=== PATIENT | male | born 1935 | race Caucasian/White ===

== ENCOUNTER 2016-11-22 13:55 | Emergency (ER) | payer MEDICARE, MEDICAID ==
--- NOTE | 2016-11-22 14:43 | ED ---
GI/ HPI - HPI Summary HPI Summary: Pt sent from [facility] w/ leaking supra pubic catheter. This was [place] [address] Garces under fluoroscopy and has been working well until recently ( no further information provided by [facility]). Pt's urologist is Dr. Mayorga. Pt is afebrile and does not offer any complaints today. - History of Current Complaint Chief Complaint: EDUrogenitalProblems Time Seen by Provider: 11/22/16 14:09 Stated Complaint: NEEDS CATH CHANGE Hx Obtained From: Patient, Family/Proofer Black [employer] White - Report from [facility] Pain Intensity: 0 - Additional Pertinent History Primary Care Physician: [id number] - Allergy/Home Medications Allergies/Adverse Reactions: Allergies Allergy/AdvReac Type Severity Reaction Status Date / Time Penicillins Allergy Unknown Verified 10/27/16 11:07 Reaction Details PMH/Surg Hx/FS Hx/Imm Hx Previously Healthy: Yes Endocrine/Hematology History: Reports: Hx Anticoagulant Therapy Denies: Hx Diabetes Cardiovascular History: Reports: Hx Atrial Fibrillation, Hx Coronary Artery Disease, Hx Deep Vein Thrombosis, Hx Hypercholesterolemia, Hx Hypertension Denies: Hx Pacemaker/ICD History: Reports: Hx Renal Disease - SUPRAPUBIC CATHETER, Other Problems/ Disorders - PROSTATE CANCER Musculoskeletal History: Reports: Other Musculoskeletal History - MORBID OBESITY Sensory History: Reports: Hx Cataracts, Hx Contacts or Glasses, Hx Glaucoma Denies: Hx Hearing Aid Opthamlomology History: Reports: Hx Cataracts, Hx Contacts or Glasses, Hx Glaucoma Neurological History: Reports: Hx Dementia, Hx Seizures, Other Neuro Impairments /Disorders - ISSUES WITH SHORT TERM MEMORY Psychiatric History: Reports: Hx Panic Disorder - NERVOUS - Cancer History Cancer Type, Location and Year: PROSTATE CANCER - Surgical History Surgery Procedure, Year, and Place: CAD WITH STENTS. CATARACTS. BRAIN SURGERY IN 1988 WITH METAL PLACEMENT (PT STATES WAS IN ACCIDENT HAD ALOT DONE DOES NOT REMEMBER) Hx Anesthesia Reactions: No Infectious Disease History: Reports: Hx of Known/Suspected MRSA Denies: Traveled Outside the [place] in Last 30 Days - Family History Known Family History: Positive: Unknown - The patient is a poor historian. Family History: R & n/C - Social History Occupation: Disabled Lives: [facility] Alcohol Use: None Hx Substance Use: No Substance Use Type: Reports: None Hx Tobacco Use: No Smoking Status (MU): Never Smoked Tobacco Review of Systems - ROS Summary Review of Systems Summary: Level 5 caveat - dementia Negative: Fever, Chills Negative: Chest Pain Negative: Abdominal Pain, Vomiting, Nausea Positive: see HPI Psychological: Normal All Other Systems Reviewed And Are Negative: Yes Physical Exam - Summary Physical Exam Summary: Level 5 caveat - dementia Triage Information Reviewed: Yes Vital Signs On Initial Exam: Initial Vitals Temp Pulse Resp BP Pulse Ox 98.3 F 68 20 119/75 98 11/22/16 14:02 11/22/16 14:02 11/22/16 14:02 11/22/16 14:02 11/22/16 14:02 Vital Signs Reviewed: Yes Appearance: Positive: Well-Appearing, No Pain Distress, Well-Nourished Skin: Positive: Warm - pannus fold where supra pubic catheter is placed is moist w/ what smells like urine - clear liquid - maculopapular confluence of what appears to be mild skin irritation around site where urine is touching skin ; no ivana breakdown observed here and pt denies tenderness w/ palpation of skin as well as ab in general Eyes: Positive: Normal, EOMI ENT: Positive: Hearing grossly normal Respiratory/Lung Sounds: Positive: Breath Sounds Present Cardiovascular: Positive: Normal, RRR - distant heart sounds Abdomen Description: Positive: Nontender, Soft Bowel Sounds: Positive: Present Neurological: Positive: Other - poor historian Psychiatric: Positive: Normal - [place] Coma Scale Coma Scale Total: 15 Diagnostics - Vital Signs Vital Signs Temp Pulse Resp BP Pulse Ox 11/22/16 14:02 98.3 F 68 20 119/75 98 - Laboratory Lab Statement: Any lab studies that have been ordered have been reviewed, and results considered in the medical decision making process. GIGU Course/Dx - Course Course Of Treatment: Pt's proximal catheter tubing flushes well with saline and easily provides urine back into a 20cc syringe - urine is clear. When reattched to distal tubing, urine starts to flow but then stops as it appears to be partially occluded by a plug in the distal tubing. Some urine is flowing into the urine outpt bag however stoma/proximal site is leaking again. Spoke w/ Emily, Photo Machine Operator, who after a period of time was able to find appropriate distal tubing for a trial which was successful in allowing urine to flow into output bag. After drying the site and waiting to see if urine would still leak from site, it was successful as the stoma site was dry after an hour, urine was flowing easily into the output bag and so pt was d/c'd back to [facility]. D/ c paperwork discussed that if catheter site starts leaking again, return to a hospital with IR as this will need to be replaced under fluoroscopy. Dr. Barrientos was contacted who deferred to Dr. Garces (IR). Dr. Garces is without resources today to address this pt's issue under fluoroscopy. ...... - Diagnoses Provider Diagnoses: Ramires catheter problem - Physician Notifications Discussed Care Of Patient With: Dr. Eckert. Dr. Garces. Dr. Barrientos Discharge - Discharge Plan Condition: Stable Disposition: HOME Patient Education Materials: Ramires Catheter Placement and Care (ED) Referrals: Solomon Aparicio MD [Primary Care Provider] - Additional Instructions: Your Ramires catheter was leaking from your stoma site today. After an equipment check, it appeared that the distal tubing was clogged with debris. This tubing was removed and new tubing placed. At this time, the urine flowed freely from the bladder without leakage. Please monitor patient for leakage over the weekend. If this occurs, he needs to be sent to a facility with an Interventional Radiologist who can replace his entire catheter under fluoroscopy as his tube size may need to be increased in diameter. *If patient develop fever, chills, vomiting, abdominal pain, return to ED
[2016-11-22 19:39] VITALS: BP 124/82
== END 2016-11-22 19:37 | disposition home or self-care (01) ==
LOC: ED 13:55
DX: Z46.6 Encounter for fitting and adjustment of urinary device (principal)
CPT/HCPCS: 99283

== ENCOUNTER 2016-12-31 20:07 | Emergency (ER) | payer MEDICARE, MEDICAID ==
[2016-12-31 20:56] VITALS: BP 130/80
--- NOTE | 2016-12-31 20:59 | ED ---
Pebbles Dash Alok, scribed for Shahriar Lockhart on 12/31/16 at 2029 . GI/ HPI - HPI Summary HPI Summary: 81 y/o male presents to the ED from [facility] in need of a suprapubic catheter replacement. Pt states that his catheter "fell out" at his long-term. Pt denies pain. - History of Current Complaint Chief Complaint: EDUrogenitalProblems Time Seen by Provider: 12/31/16 20:14 Stated Complaint: NEEDS CATHETER CHANGE Hx Obtained From: Patient Onset/Duration: Started Hours Ago Timing: Constant Severity: Moderate Current Severity: Moderate Pain Intensity: 0 - Additional Pertinent History Primary Care Physician: [id number] - Allergy/Home Medications Allergies/Adverse Reactions: Allergies Allergy/AdvReac Type Severity Reaction Status Date / Time Penicillins Allergy Unknown Verified 10/27/16 11:07 Reaction Details PMH/Surg Hx/FS Hx/Imm Hx Endocrine/Hematology History: Reports: Hx Anticoagulant Therapy Denies: Hx Diabetes Cardiovascular History: Reports: Hx Atrial Fibrillation, Hx Coronary Artery Disease, Hx Deep Vein Thrombosis, Hx Hypercholesterolemia, Hx Hypertension Denies: Hx Pacemaker/ICD History: Reports: Hx Renal Disease - SUPRAPUBIC CATHETER, Other Problems/ Disorders - PROSTATE CANCER Musculoskeletal History: Reports: Other Musculoskeletal History - MORBID OBESITY Sensory History: Reports: Hx Cataracts, Hx Contacts or Glasses, Hx Glaucoma Denies: Hx Hearing Aid Opthamlomology History: Reports: Hx Cataracts, Hx Contacts or Glasses, Hx Glaucoma Neurological History: Reports: Hx Dementia, Hx Seizures, Other Neuro Impairments /Disorders - ISSUES WITH SHORT TERM MEMORY Psychiatric History: Reports: Hx Panic Disorder - NERVOUS - Cancer History Cancer Type, Location and Year: PROSTATE CANCER - Surgical History Surgery Procedure, Year, and Place: CAD WITH STENTS. CATARACTS. BRAIN SURGERY IN 1988 WITH METAL PLACEMENT (PT STATES WAS IN ACCIDENT HAD ALOT DONE DOES NOT REMEMBER) Hx Anesthesia Reactions: No Infectious Disease History: No Infectious Disease History: Reports: Hx of Known/Suspected MRSA Denies: Traveled Outside the US in Last 30 Days - Family History Known Family History: Positive: Unknown - The patient is a poor historian. Family History: R & n/C - Social History Occupation: Retired Lives: [facility] Alcohol Use: None Hx Substance Use: No Substance Use Type: Reports: None Hx Tobacco Use: No Smoking Status (MU): Never Smoked Tobacco Review of Systems Negative: Fever Positive: other - Needs Catheter replacement All Other Systems Reviewed And Are Negative: Yes Physical Exam Triage Information Reviewed: Yes Vital Signs On Initial Exam: Initial Vitals Temp Pulse Resp BP Pulse Ox 99.1 F 82 20 160/81 100 12/31/16 20:12 12/31/16 20:12 12/31/16 20:12 12/31/16 20:12 12/31/16 20:12 Vital Signs Reviewed: Yes Appearance: Positive: Well-Appearing, No Pain Distress Skin: Positive: Warm, Skin Color Reflects Adequate Perfusion, Dry Head/Face: Positive: Normal Head/Face Inspection Eyes: Positive: EOMI, RAFY ENT: Positive: Normal ENT inspection Neck: Positive: Supple, Nontender Respiratory/Lung Sounds: Positive: Clear to Auscultation, Breath Sounds Present Cardiovascular: Positive: RRR, Pulses are Symmetrical in both Upper and Lower Extremities Abdomen Description: Positive: Nontender, Soft, Other: - Suprapubic catheter was dislodged. Ostia was present. Bowel Sounds: Positive: Present Musculoskeletal: Positive: Normal, Strength/ROM Intact Neurological: Positive: Other - Alert and confused Procedures - Procedure Summary Procedure Summary: Replaced with 16 Foli catheter. Good drainage of urine. Pt tolerated well. Diagnostics - Vital Signs Vital Signs Temp Pulse Resp BP Pulse Ox 12/31/16 20:12 99.1 F 82 20 160/81 100 - Laboratory Lab Statement: Any lab studies that have been ordered have been reviewed, and results considered in the medical decision making process. GIGU Course/Dx - Course Course Of Treatment: Suprapubic catheter was dislodged. Ostia was present. Replaced with 16 Foli catheter. Good drainage of urine. Pt tolerated well. Will discharge with recommendation to FU with PCP in 3 days. - Diagnoses Provider Diagnoses: replacement of suprapubic catheter Discharge - Discharge Plan Condition: Stable Disposition: HOME Patient Education Materials: Ramires Catheter Placement and Care (ED) Referrals: Solomon Aparicio MD [Primary Care Provider] - 3 Days The documentation as recorded by the Pebbles khan Alok accurately reflects the service I personally performed and the decisions made by Richy sow Emmanuel.
== END 2016-12-31 21:50 ==
LOC: ED 20:07
DX: Z46.6 Encounter for fitting and adjustment of urinary device (principal)
CPT/HCPCS: 99282

== ENCOUNTER 2017-04-23 21:05 | Emergency (ER) | payer MEDICARE, MEDICAID ==
--- NOTE | 2017-04-23 22:57 | ED ---
Complex/Multi-Sys Presentation - HPI Summary HPI Summary: 81 [facility] with complaint of needed his suprapubic catheter replaced. Patient's nursing staff and Dr Forbes stated he needed to have it done in ER as it was before. States it is leaking and they are having difficulties with irrigating it. Patient has dementia. Has no complaints at this time. No fever/chills. Staff at [facility] denies erythema or problems with site and no discharge. - History Of Current Complaint Chief Complaint: EDGeneral Time Seen by Provider: 04/23/17 22:08 Hx Obtained From: Patient Onset/Duration: Sudden Onset Severity Currently: None Associated Signs And Symptoms: Positive: Other - catheter replacement - Allergies/Home Medications Allergies/Adverse Reactions: Allergies Allergy/AdvReac Type Severity Reaction Status Date / Time Penicillins Allergy Rash Verified 03/25/17 09:55 PMH/Surg Hx/FS Hx/Imm Hx Endocrine/Hematology History: Reports: Hx Anticoagulant Therapy Denies: Hx Diabetes Cardiovascular History: Reports: Hx Atrial Fibrillation, Hx Coronary Artery Disease, Hx Deep Vein Thrombosis, Hx Hypercholesterolemia, Hx Hypertension Denies: Hx Pacemaker/ICD History: Reports: Hx Renal Disease - SUPRAPUBIC CATHETER, Other Problems/ Disorders - PROSTATE CANCER Musculoskeletal History: Reports: Other Musculoskeletal History - MORBID OBESITY Sensory History: Reports: Hx Cataracts, Hx Contacts or Glasses, Hx Glaucoma Denies: Hx Hearing Aid Opthamlomology History: Reports: Hx Cataracts, Hx Contacts or Glasses, Hx Glaucoma Neurological History: Reports: Hx Dementia, Hx Seizures, Other Neuro Impairments /Disorders - ISSUES WITH SHORT TERM MEMORY Psychiatric History: Reports: Hx Panic Disorder - NERVOUS - Cancer History Cancer Type, Location and Year: PROSTATE CANCER - Surgical History Surgery Procedure, Year, and Place: CAD WITH STENTS. CATARACTS. BRAIN SURGERY IN 1988 WITH METAL PLACEMENT (PT STATES WAS IN ACCIDENT HAD ALOT DONE DOES NOT REMEMBER) Hx Anesthesia Reactions: No - Immunization History Immunizations Up to Date: Yes Infectious Disease History: No Infectious Disease History: Reports: Hx of Known/Suspected MRSA Denies: Traveled Outside the US in Last 30 Days - Family History Known Family History: Positive: None, Unknown - The patient is a poor historian. Family History: R & n/C - Social History Alcohol Use: None Hx Substance Use: No Substance Use Type: Reports: None Hx Tobacco Use: No Smoking Status (MU): Never Smoked Tobacco Review of Systems Constitutional: Negative Cardiovascular: Negative Positive: Shortness Of Breath Positive: other - catheter replacement Musculoskeletal: Negative All Other Systems Reviewed And Are Negative: Yes Physical Exam Triage Information Reviewed: Yes Vital Signs On Initial Exam: Initial Vitals Temp Pulse Resp BP Pulse Ox 98.1 F 84 16 126/66 96 04/23/17 21:15 04/23/17 21:15 04/23/17 21:15 04/23/17 21:15 04/23/17 21:15 Vital Signs Reviewed: Yes Appearance: Positive: Well-Appearing, No Pain Distress, Well-Nourished Skin: Positive: Warm, Skin Color Reflects Adequate Perfusion, Dry. Negative: Cold Head/Face: Positive: Normal Head/Face Inspection Eyes: Positive: Conjunctiva Clear ENT: Positive: Hearing grossly normal Neck: Positive: Supple, Nontender Respiratory/Lung Sounds: Positive: Clear to Auscultation, Breath Sounds Present. Negative: Rales, Rhonchi, Wheezes Cardiovascular: Positive: Normal, RRR, Pulses are Symmetrical in both Upper and Lower Extremities. Negative: Murmur, Rub Abdomen Description: Positive: Nontender, No Organomegaly, Soft, Other: - suprapubic catheter in place, replaced without complication. no concern for infection, no erythema or discharge noted.. Negative: Bruit, CVA Tenderness (R) , CVA Tenderness (L), Distended, Guarding, Peritoneal Signs Bowel Sounds: Positive: Present Musculoskeletal: Positive: Normal, Strength/ROM Intact Neurological: Positive: Normal, Sensory/Motor Intact Psychiatric: Positive: Affect/Mood Appropriate - [place] Coma Scale Coma Scale Total: 15 Diagnostics - Vital Signs Vital Signs Temp Pulse Resp BP Pulse Ox 04/23/17 21:15 98.1 F 84 16 126/66 96 - Laboratory Lab Statement: Any lab studies that have been ordered have been reviewed, and results considered in the medical decision making process. Complex Multi-Symp Course/Dx Course Of Treatment: suprapubic catheter was replaced by Dr Bee without complication. Patient tolerated procedure well. appropriate size and type information recieved from [facility]. no other concerns, normal vitals, afebrile. follow up with [facility] physician and urology. - Diagnoses Differential Diagnoses/HQI/PQRI: Urinary Tract Infection, Other - encouter for replacement of urinary catheter Provider Diagnoses: Encounter for replacement of urinary catheter Discharge - Discharge Plan Condition: Stable Disposition: HOME Patient Education Materials: How to Care for Your Suprapubic Catheter (ED) Referrals: Solomon Aparicio MD [Primary Care Provider] - Additional Instructions: please follow up with urology if any complications with catheter.
[2017-04-24 00:11] VITALS: BP 142/78
== END 2017-04-24 00:50 | disposition home or self-care (01) ==
LOC: ED 21:05
DX: Z46.6 Encounter for fitting and adjustment of urinary device (principal); R06.02 Shortness of breath; Z79.01 Long term (current) use of anticoagulants; Z86.79 Personal history of other diseases of the circulatory system
CPT/HCPCS: 99282

== ENCOUNTER 2017-05-06 08:59 | Emergency (ER) | payer MEDICARE, MEDICAID ==
[2017-05-06 14:37] LABS: Urine Bacteria Absent (Absent); Urine Bilirubin Negative (Negative); Urine Glucose Negative (Negative); Urine Nitrite Positive (Negative)
--- NOTE | 2017-05-06 15:05 | ED ---
Garry Dash Benjamin, scribed for Flo Doherty MD on 05/06/17 at 1038 . GI/ HPI - HPI Summary HPI Summary: 81yo male, per RN note, came in for having constant urges to urinate. Pt is demented. Unable to get full HPI from the pt. When asked the pt, pt denies fever , chills, pain, urges to urinate, or any acute symptoms. When examined, pt has a 16 cameroonian iqbal catheter with suprapubic placement with urine leaking around the iqbal. Bladder scan showed no urine in the bladder. PMHx include HTN, cardiac stent, cataract surgery, short-term memory deficit, CAD, cellulitis, dementia, and seizures. - History of Current Complaint Chief Complaint: EDUrogenitalProblems Stated Complaint: CATH PROB Hx Obtained From: Patient Onset/Duration: Resolved Current Severity: None Pain Intensity: 0 Associated Signs and Symptoms: Positive: Negative. Negative: Fever, Chills, UTI Symptoms Aggravating Factor(s): Nothing Alleviating Factor(s): Nothing - Additional Pertinent History Primary Care Physician: [id number] - Allergy/Home Medications Allergies/Adverse Reactions: Allergies Allergy/AdvReac Type Severity Reaction Status Date / Time Penicillins Allergy Rash Verified 05/06/17 09:42 PMH/Surg Hx/FS Hx/Imm Hx Endocrine/Hematology History: Reports: Hx Anticoagulant Therapy Denies: Hx Diabetes Cardiovascular History: Reports: Hx Atrial Fibrillation, Hx Coronary Artery Disease, Hx Deep Vein Thrombosis, Hx Hypercholesterolemia, Hx Hypertension Denies: Hx Pacemaker/ICD History: Reports: Hx Renal Disease - SUPRAPUBIC CATHETER, Other Problems/ Disorders - PROSTATE CANCER Musculoskeletal History: Reports: Other Musculoskeletal History - MORBID OBESITY Sensory History: Reports: Hx Cataracts, Hx Contacts or Glasses, Hx Glaucoma Denies: Hx Hearing Aid Opthamlomology History: Reports: Hx Cataracts, Hx Contacts or Glasses, Hx Glaucoma Neurological History: Reports: Hx Dementia, Hx Seizures, Other Neuro Impairments /Disorders - ISSUES WITH SHORT TERM MEMORY Psychiatric History: Reports: Hx Panic Disorder - NERVOUS - Cancer History Cancer Type, Location and Year: PROSTATE CANCER - Surgical History Surgery Procedure, Year, and Place: CAD WITH STENTS. CATARACTS. BRAIN SURGERY IN 1988 WITH METAL PLACEMENT (PT STATES WAS IN ACCIDENT HAD ALOT DONE DOES NOT REMEMBER) Hx Anesthesia Reactions: No Infectious Disease History: No Infectious Disease History: Reports: Hx of Known/Suspected MRSA Denies: Traveled Outside the US in Last 30 Days - Family History Known Family History: Positive: Unknown - The patient is a poor historian. Dementia - Social History Occupation: Retired Lives: With Family Alcohol Use: None Hx Substance Use: No Substance Use Type: Reports: None Hx Tobacco Use: No Smoking Status (MU): Never Smoked Tobacco Review of Systems Constitutional: Negative Negative: Fever, Chills Eyes: Negative ENT: Negative Cardiovascular: Negative Negative: Chest Pain Respiratory: Negative Negative: Shortness Of Breath, Cough Gastrointestinal: Negative Positive: no symptoms reported. Negative: burning, dysuria, hematuria, pain Musculoskeletal: Negative Skin: Negative Neurological: Negative Psychological: Normal All Other Systems Reviewed And Are Negative: Yes Physical Exam Triage Information Reviewed: Yes Vital Signs On Initial Exam: Initial Vitals Temp Pulse Resp BP Pulse Ox 98.0 F 67 16 135/75 97 05/06/17 09:00 05/06/17 09:00 05/06/17 09:00 05/06/17 09:00 05/06/17 09:00 Vital Signs Reviewed: Yes Appearance: Positive: Well-Appearing, No Pain Distress, Well-Nourished Skin: Positive: Warm, Skin Color Reflects Adequate Perfusion, Dry Head/Face: Positive: Normal Head/Face Inspection Eyes: Positive: Normal ENT: Positive: Normal ENT inspection Neck: Positive: Supple, Nontender Respiratory/Lung Sounds: Positive: Clear to Auscultation, Breath Sounds Present Cardiovascular: Positive: RRR, Pulses are Symmetrical in both Upper and Lower Extremities Abdomen Description: Positive: Nontender, Soft Bowel Sounds: Positive: Present Male Genital Exam: Positive: other - Pt has a 16 cameroonian iqbal catheter with suprapubic placement with urine leaking around the iqbal. Bladder scan showed no urine in the bladder. Musculoskeletal: Positive: Normal, Strength/ROM Intact Neurological: Positive: Sensory/Motor Intact, Alert, Oriented to Person Place, Time Psychiatric: Positive: Affect/Mood Appropriate - Steven Coma Scale Coma Scale Total: 15 Diagnostics - Vital Signs Vital Signs Temp Pulse Resp BP Pulse Ox 05/06/17 09:30 67 126/74 96 05/06/17 09:06 82 93 05/06/17 09:05 135/75 05/06/17 09:00 98.0 F 67 16 135/75 97 - Laboratory Lab Results: Lab Results 05/06/17 Range/Units 14:00 Urine Color Yellow Urine Appearance Cloudy Urine pH 9.0 (5-9) Ur Specific [place] > 1.060 H (1.010-1.030) Urine Protein 1+(30 mg/dl) H (Negative) Urine Ketones Negative (Negative) Urine Blood Negative (Negative) Urine Nitrate Positive H (Negative) Urine Bilirubin Negative (Negative) Urine Urobilinogen Negative (Negative) Ur Leukocyte Esterase 3+ H (Negative) Urine WBC (Auto) 1+(6-10/hpf) H (Absent) Urine RBC (Auto) 2+(6-10/hpf) H (Absent) Ur Squamous Epith Cells Present H (Absent) Urine Bacteria Absent (Absent) Urine Glucose Negative (Negative) Lab Statement: Any lab studies that have been ordered have been reviewed, and results considered in the medical decision making process. GIGU Course/Dx - Course Course Of Treatment: Reviewed pts medication and allergy lists. Blood pressure noted. Discussed with Dr. Mayorga (Urology) at 1054. Dr. Mayorga says the pt' s catheter has been placed under Dr. Schilling's guidance in the past. Discussed with Dr. Schilling (Interventional Radiology) at 1117. DR SCHILLIGN REPLACED THE IQBAL SUPRAPUBIC CATHETER. NO RX FOR URINE AT THIS TIME THE PATIENT IS ASYMPTOMATIC. NO CRITICAL CARE TIME. - Diagnoses Provider Diagnoses: Encounter for suprapubic catheter care, Suprapubic catheter dysfunction Discharge - Discharge Plan Condition: Stable Disposition: HOME Patient Education Materials: Iqbal Catheter Placement and Care (ED) Referrals: Solomon Aparicio MD [Primary Care Provider] - Additional Instructions: FLUSH THE CATHETER WITH 20 ML OF NORMAL SALINE DAILY. FOLLOW UP WITH YOUR DOCTOR. RETURN TO THE EMERGENCY DEPARTMENT FOR ANY WORSENING OF YOUR CONDITION OR QUESTIONS OR CONCERNS. The documentation as recorded by the Garry khan Benjamin accurately reflects the service I personally performed and the decisions made by me, Flo Doherty MD.
[2017-05-06 15:23] VITALS: BP 127/62
--- NOTE | 2017-05-07 09:11 | RAD ---
CPT II Codes: 6045F Indication: Occluded suprapubic catheter. History: Chronic urethral obstruction Anaesthesia: None Antibiotic prophylaxis: None Fluoroscopy time: 7 seconds Procedure note and findings: The patient was appropriately positioned on the fluoroscopy and a formal time out was performed. The existing suprapubic catheter and surrounding site was prepped and draped in standard sterile fashion. Sterile precautions including cap, mask, gown and sterile gloves were utilized. The existing tube could not be injected due to obstruction. The Ramires balloon was deflated, the tube removed and a new 18-Taiwanese Ramires catheter was inserted into the urinary bladder. The balloon was inflated. The new tube was injected with dilute contrast confirming appropriate intraluminal position. No leak of contrast into the anterior pelvic compartment is visualized. The patient tolerated the procedure well and was observed in the IR holding area prior to discharge. IMPRESSION: Uncomplicated exchange of percutaneous suprapubic tube with fluoroscopic guidance as described in the report. The suprapubic tube size was increased to an 18-Taiwanese suprapubic catheter.
--- NOTE | 2017-05-07 09:11 | RAD ---
CPT II Codes: 6045F Indication: Occluded suprapubic catheter. History: Chronic urethral obstruction Anaesthesia: None Antibiotic prophylaxis: None Fluoroscopy time: 7 seconds Procedure note and findings: The patient was appropriately positioned on the fluoroscopy and a formal time out was performed. The existing suprapubic catheter and surrounding site was prepped and draped in standard sterile fashion. Sterile precautions including cap, mask, gown and sterile gloves were utilized. The existing tube could not be injected due to obstruction. The Ramires balloon was deflated, the tube removed and a new 18-Burmese Ramires catheter was inserted into the urinary bladder. The balloon was inflated. The new tube was injected with dilute contrast confirming appropriate intraluminal position. No leak of contrast into the anterior pelvic compartment is visualized. The patient tolerated the procedure well and was observed in the IR holding area prior to discharge. IMPRESSION: Uncomplicated exchange of percutaneous suprapubic tube with fluoroscopic guidance as described in the report. The suprapubic tube size was increased to an 18-Burmese suprapubic catheter.
--- NOTE | 2017-05-10 20:25 | ED ---
Progress - Progress Note Progress Note: Pt's urine cx reveals proteus mirabilis - sens reveals keflex as an effective anbx and pt's most recent renal fxn appears to be able to tolerate normal dose. His allergy to PCN was rash - no anaphylaxis. Spoke w/ MARNIE Odell @ [facility] who will provide pt with first dose tonight and notify PCP there - remaining rx sent to [facility] in [place] - 500mg PO BID x 7 days. Will fax results to [phone] attention Jose R. Renee steward dishwasher, aware Course/Dx - Course Course Of Treatment: Reviewed pts medication and allergy lists. Blood pressure noted. Discussed with Dr. Mayorga (Urology) at 1054. Dr. Mayorga says the pt' s catheter has been placed under Dr. Schilling's guidance in the past. Discussed with Dr. Schilling (Interventional Radiology) at 1117. DR SCHILLING REPLACED THE IQBAL SUPRAPUBIC CATHETER. NO RX FOR URINE AT THIS TIME THE PATIENT IS ASYMPTOMATIC. NO CRITICAL CARE TIME. - Diagnoses Provider Diagnoses: Encounter for suprapubic catheter care, Suprapubic catheter dysfunction
== END 2017-05-06 16:25 | disposition home or self-care (01) ==
LOC: ED 08:59
DX: T83.9XXA Unspecified complication of genitourinary prosthetic device, implant and graft, initial encounter (principal)
CPT/HCPCS: 36598; 50435; 51600; 51710; 74430; 75984; 81003; 81015; 87077; 87086; 87184; 87186; 99283; Q9967

== ENCOUNTER 2017-07-15 10:55 | Inpatient (IN) | payer MEDICARE, MEDICAID ==
[2017-07-15] MEDS ORDERED: NS 0.9% 1000 ML* 1,000 ML IV ONE (12:53)
[2017-07-15] MEDS ORDERED: Pantoprazole IV* 40 MG IV ONE (12:53)
[2017-07-15] MEDS ORDERED: Pantoprazole IV* 80 MG in NS 0.9% 250 ML* 250 ML IV SCH (13:00)
[2017-07-15 13:27] LABS: Add Diff/Slide Review? Slide Review Added; Comments Flag Yes; Hematocrit 44 % (42-52); Hemoglobin 15.1 g/dl (14.0-18.0); Mean Corpuscular HGB Conc 34 g/dl (31-36); Mean Corpuscular Hemoglobin 32 pg (27-31); Mean Corpuscular Volume 94 fL (80-94); Mean Platelet Volume 9 um3 (7.4-10.4); Red Cell Distribution Width 16 % (10.5-15); White Blood Count 24.7 10^3/ul (3.5-10.8)
[2017-07-15 13:41] LABS: Albumin 3.1 g/dL (3.2-5.2); BUN/Creatinine Ratio 36.9 (8-20); Calcium 9.6 mg/dL (8.6-10.3); EGFR African American 54.7 (>60); EGFR Non-African American 42.5 (>60); Globulin 3.6 g/dL (2-4); Potassium 3.5 mmol/L (3.5-5.0); Total Bilirubin 0.6 mg/dL (0.2-1.0); Total Protein 6.7 g/dL (6.4-8.9)
--- NOTE | 2017-07-15 14:26 | ED ---
Jeimy Dash Gabriel, scribed for Suraj Eckert MD on 07/15/17 at 1210 . GI/ HPI - HPI Summary HPI Summary: This patient is a 81 year old M BIBA to [facility] after being sent for a GI bleed. LEVEL 5 CAVEAT: HPI limited due to patient being severely demented and unresponsive. - History of Current Complaint Chief Complaint: EDGIBleed Time Seen by Provider: 07/15/17 11:42 Stated Complaint: BLOOD IN STOOL Hx Obtained From: Medical Records Hx From Patient Unobtainable Due To: Dementia Timing: Constant Pain Intensity: 0 - Additional Pertinent History Primary Care Physician: [id number] - Allergy/Home Medications Allergies/Adverse Reactions: Allergies Allergy/AdvReac Type Severity Reaction Status Date / Time Penicillins Allergy Rash Verified 05/06/17 09:42 Home Medications: Home Medications Brinzolamid/Brimonidin OPH(NF) [Simbrinza OPH.SUSP(NF)] 1 drop BOTH EYES TID [History Confirmed 07/15/17] Calcium Carbonate-Cholecalcife [Oyster Shell Calcium+D 500-200 mg-Unit] 1 tab PO BID 07/15/17 [History Confirmed 07/15/17] Cholecalciferol [Vitamin D3] 50,000 unit PO MONTHLY 07/15/17 [History Confirmed 07/15/17] HYDROcodone/ACETAMIN 5-325 MG* [Decherd 5-325 TAB*] 1 tab PO Q6H PRN 07/15/17 [ History Confirmed 07/15/17] Metoprolol Succinate XL TAB* [Toprol XL TAB*] 100 mg PO DAILY 07/15/17 [History Confirmed 07/15/17] PMH/Surg Hx/FS Hx/Imm Hx Previously Healthy: No - LEVEL 5 CAVEAT: PMH limited due to patient being severely demented and unre Endocrine/Hematology History: Reports: Hx Anticoagulant Therapy Denies: Hx Diabetes Cardiovascular History: Reports: Hx Atrial Fibrillation, Hx Coronary Artery Disease, Hx Deep Vein Thrombosis, Hx Hypercholesterolemia, Hx Hypertension Denies: Hx Pacemaker/ICD History: Reports: Hx Renal Disease - SUPRAPUBIC CATHETER, Other Problems/ Disorders - PROSTATE CANCER Musculoskeletal History: Reports: Other Musculoskeletal History - MORBID OBESITY Sensory History: Reports: Hx Cataracts, Hx Contacts or Glasses, Hx Glaucoma Denies: Hx Hearing Aid Opthamlomology History: Reports: Hx Cataracts, Hx Contacts or Glasses, Hx Glaucoma Neurological History: Reports: Hx Dementia, Hx Seizures, Other Neuro Impairments /Disorders - ISSUES WITH SHORT TERM MEMORY Psychiatric History: Reports: Hx Panic Disorder - NERVOUS - Cancer History Cancer Type, Location and Year: PROSTATE CANCER - Surgical History Surgery Procedure, Year, and Place: CAD WITH STENTS. CATARACTS. BRAIN SURGERY IN 1988 WITH METAL PLACEMENT (PT STATES WAS IN ACCIDENT HAD ALOT DONE DOES NOT REMEMBER) Hx Anesthesia Reactions: No Infectious Disease History: Unable to Obtain/Confirm Infectious Disease History: Reports: Hx of Known/Suspected MRSA Denies: Traveled Outside the [place] in Last 30 Days - Family History Known Family History: Positive: None, Unknown - The patient is a poor historian. Dementia Family History: R & n/C - Social History Alcohol Use: None Hx Substance Use: No Substance Use Type: Reports: None Hx Tobacco Use: No Smoking Status (MU): Never Smoked Tobacco Review of Systems - ROS Summary Review of Systems Summary: LEVEL 5 CAVEAT: ROS limited due to patient being severely demented and unresponsive. Negative: Fever Positive: Other - GI bleeding All Other Systems Reviewed And Are Negative: Yes Physical Exam - Summary Physical Exam Summary: The patient is well-nourished in no acute distress and in no acute pain. The skin is warm and dry and skin color reflects adequate perfusion. HEENT: ~The head is normocephalic and atraumatic. The pupils are equal and reactive. The conjunctivae are clear and without drainage. ~Nares are patent and without drainage. ~Mouth reveals dry mucous membranes and the throat is without erythema and exudate. ~The external ears are intact. The ear canals are patent and without drainage. The tympanic membranes are intact. Neck is supple with full range of motion and non-tender. There are no carotid bruits. ~There is no neck vein distension. Respiratory: Chest is non-tender. ~Lungs are clear to auscultation and breath sounds are symmetrical and equal. Cardiovascular: Heart is regular rate and rhythm. ~There is no murmur or rub auscultated. ~~There is no peripheral edema and pulses are symmetrical and equal. Abdomen: The abdomen is soft and non-tender. ~There are normal bowel sounds heard in all four quadrants and there is no organomegaly palpated. Musculoskeletal: There is no back pain noted. ~Extremities are non-tender with full range of motion. ~There is good capillary refill. ~There is no peripheral edema or calf tenderness elicited. Neurological: Patient is alert and oriented to person, place and time. ~The patient has symmetrical motor strength in all four extremities. ~Cranial nerves are grossly intact. Deep tendon reflexes are symmetrical and equal in all four extremities. Psychiatric: The patient has an appropriate affect and does not exhibit any anxiety or depression. LEVEL 5 CAVEAT: PE limited due to patient being severely demented and unresponsive. Triage Information Reviewed: Yes Vital Signs On Initial Exam: Initial Vitals Temp Pulse Resp BP Pulse Ox 98.2 F 95 18 115/76 96 07/15/17 11:22 07/15/17 11:22 07/15/17 11:22 07/15/17 11:22 07/15/17 11:22 Vital Signs Reviewed: Yes - Steven Coma Scale Coma Scale Total: 14 Diagnostics - Vital Signs Vital Signs Temp Pulse Resp BP Pulse Ox 07/15/17 11:22 98.2 F 95 18 115/76 96 - Laboratory Lab Results: Lab Results 07/15/17 07/15/17 07/15/17 Range/Units 13:15 13:15 13:15 WBC 24.7 H (3.5-10.8) 10^3/ul RBC 4.70 (4.0-5.4) 10^6/ul Hgb 15.1 (14.0-18.0) g/dl Hct 44 (42-52) % MCV 94 (80-94) fL MCH 32 H (27-31) pg MCHC 34 (31-36) g/dl RDW 16 H (10.5-15) % Plt Count 287 (150-450) 10^3/ul MPV 9 (7.4-10.4) um3 Neut % (Auto) 85.7 H (38-83) % Lymph % (Auto) 8.7 L (25-47) % Brule % (Auto) 5.0 (1-9) % Eos % (Auto) 0.1 (0-6) % Baso % (Auto) 0.5 (0-2) % Absolute Neuts (auto) 21.2 H (1.5-7.7) 10^3/ul Absolute Lymphs (auto) 2.2 (1.0-4.8) 10^3/ul Absolute Monos (auto) 1.2 H (0-0.8) 10^3/ul Absolute Eos (auto) 0 (0-0.6) 10^3/ul Absolute Basos (auto) 0.1 (0-0.2) 10^3/ul Absolute Nucleated RBC 0 10^3/ul Nucleated RBC % 0 INR (Anticoag Therapy) 1.52 H (0.89-1.11) APTT 55.7 H (26.0-36.3) seconds Sodium 133 (133-145) mmol/L Potassium 3.5 (3.5-5.0) mmol/L Chloride 86 L (101-111) mmol/L Carbon Dioxide 38 H (22-32) mmol/L Anion Gap 9 (2-11) mmol/L BUN 58 H (6-24) mg/dL Creatinine 1.57 H (0.67-1.17) mg/dL Est GFR ( Amer) 54.7 (>60) Est GFR (Non-Af Amer) 42.5 (>60) BUN/Creatinine Ratio 36.9 H (8-20) Glucose 264 H (70-100) mg/dL Calcium 9.6 (8.6-10.3) mg/dL Total Bilirubin 0.60 (0.2-1.0) mg/dL AST 14 (13-39) U/L ALT 13 (7-52) U/L Alkaline Phosphatase 92 (34-104) U/L Total Protein 6.7 (6.4-8.9) g/dL Albumin 3.1 L (3.2-5.2) g/dL Globulin 3.6 (2-4) g/dL Albumin/Globulin Ratio 0.9 L (1-3) Blood Type Antibody Screen 07/15/17 Range/Units 13:15 WBC (3.5-10.8) 10^3/ul RBC (4.0-5.4) 10^6/ul Hgb (14.0-18.0) g/dl Hct (42-52) % MCV (80-94) fL MCH (27-31) pg MCHC (31-36) g/dl RDW (10.5-15) % Plt Count (150-450) 10^3/ul MPV (7.4-10.4) um3 Neut % (Auto) (38-83) % Lymph % (Auto) (25-47) % Brule % (Auto) (1-9) % Eos % (Auto) (0-6) % Baso % (Auto) (0-2) % Absolute Neuts (auto) (1.5-7.7) 10^3/ul Absolute Lymphs (auto) (1.0-4.8) 10^3/ul Absolute Monos (auto) (0-0.8) 10^3/ul Absolute Eos (auto) (0-0.6) 10^3/ul Absolute Basos (auto) (0-0.2) 10^3/ul Absolute Nucleated RBC 10^3/ul Nucleated RBC % INR (Anticoag Therapy) (0.89-1.11) APTT (26.0-36.3) seconds Sodium (133-145) mmol/L Potassium (3.5-5.0) mmol/L Chloride (101-111) mmol/L Carbon Dioxide (22-32) mmol/L Anion Gap (2-11) mmol/L BUN (6-24) mg/dL Creatinine (0.67-1.17) mg/dL Est GFR ( Amer) (>60) Est GFR (Non-Af Amer) (>60) BUN/Creatinine Ratio (8-20) Glucose (70-100) mg/dL Calcium (8.6-10.3) mg/dL Total Bilirubin (0.2-1.0) mg/dL AST (13-39) U/L ALT (7-52) U/L Alkaline Phosphatase (34-104) U/L Total Protein (6.4-8.9) g/dL Albumin (3.2-5.2) g/dL Globulin (2-4) g/dL Albumin/Globulin Ratio (1-3) Blood Type A Negative Antibody Screen Pending Result Diagrams: 07/15/17 13:15 07/15/17 13:15 Lab Statement: Any lab studies that have been ordered have been reviewed, and results considered in the medical decision making process. GIGU Course/Dx - Course Course Of Treatment: Mr. Osman presented from the [facility] with rectal bleeding. He was found to be quite dehydrated and not yet anemic. He is being admitted by the hospitalist service. - Diagnoses Provider Diagnoses: GI bleed - Physician Notifications Discussed Care Of Patient With: Anitra Rajput Time Discussed With Above Provider: 13:53 Instructed by Provider To: Other - 13:51: I consulted with Dr. Rajput, Hospitalist. Who has agreed to admit the patient. Discharge - Discharge Plan Condition: Stable Disposition: ADMITTED TO [facility] Referrals: Solomon Aparicio MD [Primary Care Provider] - The documentation as recorded by the Jeimy khan Gabriel accurately reflects the service I personally performed and the decisions made by me, Suraj Eckert MD.
[2017-07-15 14:38] LABS: Urine Bacteria Absent (Absent); Urine Bilirubin Negative (Negative); Urine Glucose Negative (Negative); Urine Nitrite Negative (Negative)
[2017-07-15] MEDS ORDERED: Acetaminophen TAB* 325 MG PO PRN (15:14)
[2017-07-15] MEDS ORDERED: Al Hydrox/Mg Hydrox/Simet LIQ* 30 ML UDC PO PRN (15:14)
[2017-07-15] MEDS ORDERED: HYDROcodone/ACETAMIN 5-325 MG* 1 TAB PO PRN (15:17)
[2017-07-15] MEDS ORDERED: NS 0.9% 1000 ML* 1,000 ML IV SCH (15:30)
[2017-07-15] MEDS ORDERED: Dextrose 50% Syringe 50 ML* 25 GM/50 ML SYRINGE IV PUSH PRN (15:39)
[2017-07-15] MEDS: cefTRIAXone VIAL(*) 1,000 MG in NS 0.9% 50 ML* 50 ML IVPB SCH (16:59)
[2017-07-15 17:12] LABS: Phenytoin 14.4 mcg/mL (10-20)
[2017-07-15] MEDS: Insulin LISPRO* 1 UNITS UNIT SUBCUT SCH ×2 (17:15→21:14)
--- NOTE | 2017-07-15 21:35 | HP ---
ADDENDUM NOW INCLUDED ON THIS REPORT CC: Dr. Springer from [facility] * HISTORY AND PHYSICAL: DATE OF ADMISSION: 07/15/17 PRIMARY CARE PROVIDER: Dr. Springer from [facility]. CHIEF COMPLAINT: The patient in fact has no complaints. It was noted that the patient has bright red blood per rectum, which the patient denies. HISTORY OF PRESENT ILLNESS: Evelio Osman is an 81-year-old male with past medical history of chronic diastolic CHF as well as atrial fibrillation, on Pradaxa. The patient also has suprapubic catheter for history of prostate cancer. [facility] noted that the patient had bright red blood per rectum. The staff at the hospital noted that the patient had firm stool with some blood noted around it. The patient himself is upset that he is in the hospital. In fact, he is not really sure where he is. He is swearing intermittently throughout my evaluation and he refuses to be examined. A limited physical exam was conducted. The patient has no complaints. The patient is going to be placed on overnight observation with a diagnosis of UTI and most likely hematochezia. PAST MEDICAL HISTORY: 1. History of coronary artery disease with stenting in the past. 2. History of DVT, on Pradaxa. 3. History of diastolic CHF. 4. History of atrial fibrillation, chronic. 5. History of morbid obesity. 6. Hypertension. 7. Hyperlipidemia. 8. Dementia. 9. Glaucoma. 10. Seizure disorder. 11. History of prostate cancer status post suprapubic catheter placement, which is chronic. 12. History of depression. 13. History of status post cholecystectomy. 14. History of status post craniotomy. 15. History of bullous pemphigoid, on chronic steroids. 16. Status post pacemaker placement. MEDICATIONS: At the [facility] include: 1. Minerin cream 1 application q.p.m. 2. Vitamin D3, 50,000 units p.o. monthly. 3. Travatan eye drops 0.004% 1 drop both eyes at bedtime. 4. Torsemide 80 mg daily. 5. Metoprolol succinate 100 mg daily. 6. Aldactone 25 mg daily. 7. Simbrinza ophthalmic solution 1 drop both eyes 3 times a day. 8. Prednisone 5 mg daily. 9. Senna 1 tablet daily. 10. Pradaxa 150 mg b.i.d. 11. Potassium chloride 10 mEq daily. 12. Dilantin 300 mg b.i.d. 13. Calcium carbonate with vitamin D 1 tablet b.i.d. 14. Hydrocodone/acetaminophen 5/325 mg 1 tablet every 6 hours p.r.n. 15. Hydrochlorothiazide 25 mg daily. ALLERGIES: Include PENICILLIN with unknown reaction. FAMILY HISTORY: Unobtainable from this patient who has dementia and is not cooperative with evaluation and interview. SOCIAL HISTORY: As per past medical records, the patient has history of 30- pack year smoking. Currently, he is a resident at [facility]. His , Dilcia Osman, is listed as his healthcare proxy. REVIEW OF SYSTEMS: Please see history of present illness. The patient is upset , answers no to all the questioning. All of the 12 systems were reviewed with the patient. negative. I am not sure how reliable a historian he is. PHYSICAL EXAMINATION GENERAL: The patient is an 81-year-old obese male who is in no acute distress. The patient knows his age, refuses to give me his date. He states that he lives in "a dorm." He does not know if he is in the hospital or not. VITAL SIGNS: Blood pressure 106/77, heart rate of 94 and irregularly irregular , respiratory rate 20, oxygen saturation 95% on room air, temperature of 98.2. HEENT: Head: Atraumatic, normocephalic. Eyes: Pupils are equal, reactive to light and accommodation. Oropharynx clear. Mucosa moist. NECK: Supple. No JVD. No bruits bilaterally. RESPIRATORY: Clear to auscultation bilaterally. CARDIOVASCULAR: Irregularly irregular rhythm, no murmur. ABDOMEN: Protuberant, soft, nontender. Bowel sounds present in all 4 quadrants. Suprapubic catheter placed. No evidence of skin infection at the incision site. EXTREMITIES: There is trace bilateral ankle edema. Pulses are steady but palpable in bilateral lower extremities. There is no clubbing or cyanosis. 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 NEUROLOGIC: Speech clear. Cranial nerves II through XII grossly intact. Motor strength is 5/5 bilateral upper extremities, 4/5 in bilateral lower extremities. PSYCHIATRIC: The patient frequently swears, is upset, refuses evaluation. He has significant dementia. LABORATORY DATA: White blood cell count of 24.7, hemoglobin of 15.1, hematocrit of 44, and platelets of 287,000. Sodium was 133, potassium 3.5, chloride 86, carbon dioxide 38, BUN 15, creatinine 1.57. Sugar of 264. Liver function tests unremarkable. The patient's urinalysis showed +3 esterase. Urine was grossly tinged with blood. +1 RBC's on evaluation. Triple phosphate crystals present. No bacteria. Dilantin levels are pending at the time of dictation. IMAGING: The patient's EKG showed ventricular paced rhythm with heart rate of 95 beats per minute. Appears sinus. ASSESSMENT AND PLAN: 1. An 81-year-old male with history of deep vein thrombosis and atrial fibrillation on Pradaxa who presents with rectal bleeding. At this point, it appears to be hematochezia. The lower bleed may be due to hemorrhoids. Unfortunately, the patient refused a rectal evaluation. He is going to be placed on overnight observation with hemoglobin and hematocrit checked every 8 hours. I suspect that he is going to have some hemodilution over the next 24 hours since he received 1 L of intravenous fluids in the emergency department and he is going to receive another liter over the course of the day. The patient is going to be placed on PPI p.o. b.i.d. as well as limited diet, which is going to be soft, GI related diet. I suspect if hematochezia does not cause significant bleed, it is probably due to hemorrhoids and probably due to constipation. Pradaxa is going to be held during the course of the patient's hospital stay. 2. In regards to the patient's elevated sugars, I do not see diabetes as a diagnosis in his medical records as his hemoglobin A1c was over 7 over a year ago. I will obtain hemoglobin A1c for tomorrow and put the patient on diabetic diet. 3. The patient has marked leukocytosis and abnormal urinalysis. I suspect the patient has catheter related urinary tract infection. Place him on ceftriaxone and await cultures. 4. In regards to the patient's atrial fibrillation, currently the patient is in a paced rhythm. 5. For his seizure disorder, Dilantin is going to be continued and Dilantin level is going to be obtained. 6. In regards to the patient's history of prostate cancer and obstructive uropathy, he has suprapubic catheter in place, which is going to be continued. 7. Due to his history of diastolic congestive heart failure, his diuretics are going to be continued. I will also obtain weights daily and watch for possibility of fluid overload. 8. The patient's code status is Do Not Resuscitate and will be carried over for the next 24 hours of his hospital stay. His surrogate is his . 9. For DVT prophylaxis, the patient is going to be placed on sequential compression devices and pharmacologic prophylaxis is contraindicated due to the hematochezia. TIME SPENT: Approximately 62 minutes were spent on the admission of this patient; more than half of that time was spent [id number] with the patient doing the evaluation and history and physical taken. ADDENDUM: ASSESSMENT AND PLAN: 1. Please note that the patient has a history of chronic steroid use and on chronic prednisone due to bullous pemphigoid. Due to his bleed being obviously lower gastrointestinal related, I do not believe stopping steroids is necessary. At this point, he is going to be continued on p.o. prednisone. 2. The patient's acute renal failure is likely due to mild dehydration. His Aldactone is going to be held. I will continue his p.o. torsemide for tomorrow though. He will also receive gentle hydration and repeat lab work in the morning. [id number] #: [id number] #: [id number] CARISSA
[2017-07-15] MEDS: Omeprazole CAP* 20 MG PO SCH (21:36)
[2017-07-15] MEDS: Phenytoin CAP(*) 100 MG CAP.ER PO SCH (21:36)
[2017-07-15] MEDS: Docusate CAP* 100 MG PO SCH (21:36)
--- NOTE | 2017-07-15 21:43 | HP ---
HISTORY AND PHYSICAL:* ADDENDUM: ASSESSMENT AND PLAN: 1. Please note that the patient has a history of chronic steroid use and on chronic prednisone due to bullous pemphigoid. Due to his bleed being obviously lower gastrointestinal related, I do not believe stopping steroids is necessary. At this point, he is going to be continued on p.o. prednisone. 2. The patient's acute renal failure is likely due to mild dehydration. His Aldactone is going to be held. I will continue his p.o. torsemide for tomorrow though. He will also receive gentle hydration and repeat lab work in the morning. [id number] #: [id number] MTDD
[2017-07-16 00:27] LABS: Hematocrit 41 % (42-52); Hemoglobin 13.8 g/dl (14.0-18.0)
[2017-07-16 06:05] LABS: Hematocrit 40 % (42-52); Hemoglobin 13.8 g/dl (14.0-18.0); Mean Corpuscular HGB Conc 34 g/dl (31-36); Mean Corpuscular Hemoglobin 32 pg (27-31); Mean Corpuscular Volume 94 fL (80-94); Mean Platelet Volume 9 um3 (7.4-10.4); Red Blood Count 4.28 10^6/ul (4.0-5.4); Red Cell Distribution Width 16 % (10.5-15)
[2017-07-16 06:40] LABS: BUN/Creatinine Ratio 41.1 (8-20); Blood Urea Nitrogen 51 mg/dL (6-24); CO2 Carbon Dioxide 37 mmol/L (22-32); Calcium 9.2 mg/dL (8.6-10.3); Chloride 94 mmol/L (101-111); EGFR African American 71.8 (>60); EGFR Non-African American 55.8 (>60); Glucose 191 mg/dL (70-100); Sodium 137 mmol/L (133-145)
[2017-07-16 06:49] LABS: Anion Gap 6 mmol/L (2-11)
[2017-07-16] MEDS ORDERED: Spironolactone TAB* 25 MG PO SCH (09:00)
[2017-07-16] MEDS: Phenytoin CAP(*) 100 MG CAP.ER PO SCH ×3 (09:18→20:32)
[2017-07-16] MEDS: Metoprolol Succinate XL TAB* 100 MG PO SCH (09:19)
[2017-07-16] MEDS: Potassium Chlor TAB* 10 MEQ TAB.ER PO SCH (09:21)
[2017-07-16] MEDS: Torsemide TAB* 20 MG PO SCH (09:24)
[2017-07-16] MEDS: Senna TAB PO SCH (09:26)
[2017-07-16] MEDS: Omeprazole CAP* 20 MG PO SCH ×3 (09:26→20:33)
[2017-07-16] MEDS: Hydrochlorothiazide TAB* 25 MG PO SCH (09:26)
[2017-07-16] MEDS: Docusate CAP* 100 MG PO SCH ×3 (09:29→20:32)
[2017-07-16] MEDS: Insulin LISPRO* 1 UNITS UNIT SUBCUT SCH ×4 (09:32→20:32)
[2017-07-16] MEDS: predniSONE TAB* 10 MG PO SCH (09:37)
[2017-07-16] MEDS: cefTRIAXone VIAL(*) 1,000 MG in NS 0.9% 50 ML* 50 ML IVPB SCH (16:09)
--- NOTE | 2017-07-16 17:33 | PN ---
Subjective Date of Service: 07/16/17 Interval History: Tmax 99.0 3pm yesterday. Leukocytosis improved to 13. A1C elevated to 9.0. Got suprapubic catheter exchanged with Dr. Garces this afternoon. UCx with proteus mirabilis which he does have recent history with. Had bowel movement without evidence of blood or melena per tech verbal report to RN. Hgb stable 13.8. Pt poor historian, not attesting to current complaints. Objective Active Medications: Acetaminophen (Tylenol Tab*) 650 mg PO Q4H PRN PRN Reason: FEVER/PAIN Hydrocodone Bitart/Acetaminophen ([place] 5-325 Tab*) 1 tab PO Q6H PRN PRN Reason: PAIN - UNRELIEVED Last Admin: 07/16/17 14:33 Dose: 1 tab Al Hydrox/Mg Hydrox/Simethicone (Maalox Plus*) 30 ml PO Q6H PRN PRN Reason: INDIGESTION Dextrose (D50w Syringe 50 Ml*) 12.5 gm IV PUSH .FOR FS < 60 - SS PRN PRN Reason: FS < 60 Docusate Sodium (Colace Cap*) 100 mg PO BID [facility] Last Admin: 07/16/17 09:29 Dose: 100 mg Hydrochlorothiazide (Hydrodiuril Tab*) 25 mg PO DAILY [facility] Last Admin: 07/16/17 09:26 Dose: 25 mg Ceftriaxone Sodium 1,000 mg/ (Sodium Chloride) 50 mls @ 200 mls/hr IVPB Q24H [facility] Last Admin: 07/16/17 16:09 Dose: 200 mls/hr Sodium Chloride (Ns 0.9% 1000 Ml*) 1,000 mls @ 75 mls/hr IV PER RATE [facility] Last Admin: 07/15/17 17:00 Dose: 75 mls/hr Insulin Human Lispro (Humalog*) 0 units SUBCUT ACHS [facility] PRN Reason: Protocol Last Admin: 07/16/17 17:00 Dose: 2 units Metoprolol Succinate (Toprol Xl Tab*) 100 mg PO DAILY [facility] Last Admin: 07/16/17 09:19 Dose: 100 mg Omeprazole (Prilosec Cap*) 20 mg PO BID [facility] Last Admin: 07/16/17 09:26 Dose: 20 mg Phenytoin Sodium (Dilantin Cap(*)) 300 mg PO BID [facility] Last Admin: 07/16/17 09:18 Dose: 300 mg Potassium Chloride (Klor Con Er Tab*) 10 meq PO [facility] Last Admin: 07/16/17 09:21 Dose: 10 meq Prednisone (Deltasone Tab*) 5 mg PO [facility] Last Admin: 07/16/17 09:37 Dose: 5 mg Senna (Senokot Tab*) 1 tab PO [facility] Last Admin: 07/16/17 09:26 Dose: 1 tab Torsemide (Demadex*) 80 mg PO [facility] Last Admin: 07/16/17 09:24 Dose: 80 mg Vital Signs 07/15/17 07/15/17 07/15/17 20:00 20:24 23:49 Temperature 97.5 F 97.5 F Pulse Rate 94 89 Respiratory 18 18 20 Rate Blood Pressure 139/68 88/48 (mmHg) O2 Sat by Pulse 100 95 Oximetry 07/15/17 07/16/17 07/16/17 23:52 03:25 07:19 Temperature 97.5 F 97.6 F Pulse Rate 92 100 Respiratory 19 16 Rate Blood Pressure 98/47 136/62 109/69 (mmHg) O2 Sat by Pulse 99 92 Oximetry 07/16/17 07/16/17 07/16/17 08:35 08:49 14:33 Temperature 97.5 F Pulse Rate 99 Respiratory 12 16 Rate Blood Pressure 117/63 (mmHg) O2 Sat by Pulse 89 Oximetry 07/16/17 16:55 Temperature 97.7 F Pulse Rate 69 Respiratory 16 Rate Blood Pressure 147/69 (mmHg) O2 Sat by Pulse 100 Oximetry Oxygen Devices in Use Now: None Appearance: NAD, lying in bed. Ears/Nose/Mouth/Throat: NL Teeth, Lips, Gums, Mucous Membranes Moist Neck: NL Appearance and Movements; NL JVP Respiratory: Symmetrical Chest Expansion and Respiratory Effort, Clear to Auscultation Cardiovascular: NL Sounds; No Murmurs; No JVD, RRR Abdominal: NL Sounds; No Tenderness; No Distention, No Hepatosplenomegaly Extremities: No Edema, No Clubbing, Cyanosis Skin: No Rash or Ulcers, No Nodules or Sclerosis Neurological: - - Oriented to name only. place is "dormitory" and year "why would i care" Lines/Tubes/Other Access: Clean, Dry and Intact Rueda - suprapubic Result Diagrams: 07/16/17 05:48 07/16/17 05:48 Additional Lab and Data: Laboratory Results - last 24 hr 07/15/17 07/15/17 07/16/17 00:00 20:52 00:00 WBC RBC Hgb Cancelled 13.8 L Hct Cancelled 41 L MCV MCH MCHC RDW Plt Count MPV Neut % (Auto) Lymph % (Auto) Davison % (Auto) Eos % (Auto) Baso % (Auto) Absolute Neuts (auto) Absolute Lymphs (auto) Absolute Monos (auto) Absolute Eos (auto) Absolute Basos (auto) Absolute Nucleated RBC CBC Comment Cancelled Nucleated RBC % Sodium Potassium Chloride Carbon Dioxide Anion Gap BUN Creatinine Est GFR ( Amer) Est GFR (Non-Af Amer) BUN/Creatinine Ratio Glucose POC Glucose (mg/dL) 286 H Hemoglobin A1c Calcium 07/16/17 07/16/17 07/16/17 05:26 05:48 05:48 WBC 13.0 H RBC 4.28 Hgb 13.8 L Hct 40 L MCV 94 MCH 32 H MCHC 34 RDW 16 H Plt Count 267 MPV 9 Neut % (Auto) 68.0 Lymph % (Auto) 24.5 L Davison % (Auto) 6.0 Eos % (Auto) 0.9 Baso % (Auto) 0.6 Absolute Neuts (auto) 8.8 H Absolute Lymphs (auto) 3.2 Absolute Monos (auto) 0.8 Absolute Eos (auto) 0.1 Absolute Basos (auto) 0.1 Absolute Nucleated RBC 0.02 CBC Comment Nucleated RBC % 0.2 Sodium 137 Potassium TNP Chloride 94 L Carbon Dioxide 37 H Anion Gap 6 BUN 51 H Creatinine 1.24 H Est GFR ( Amer) 71.8 Est GFR (Non-Af Amer) 55.8 BUN/Creatinine Ratio 41.1 H Glucose 191 H POC Glucose (mg/dL) Hemoglobin A1c 9.0 H Calcium 9.2 07/16/17 16:20 WBC RBC Hgb Hct MCV MCH MCHC RDW Plt Count MPV Neut % (Auto) Lymph % (Auto) Davison % (Auto) Eos % (Auto) Baso % (Auto) Absolute Neuts (auto) Absolute Lymphs (auto) Absolute Monos (auto) Absolute Eos (auto) Absolute Basos (auto) Absolute Nucleated RBC CBC Comment Nucleated RBC % Sodium Potassium Chloride Carbon Dioxide Anion Gap BUN Creatinine Est GFR ( Amer) Est GFR (Non-Af Amer) BUN/Creatinine Ratio Glucose POC Glucose (mg/dL) 176 H Hemoglobin A1c Calcium Microbiology and Other Data: Microbiology 07/15/17 13:57 Urine Urine Culture - Preliminary Proteus Mirabilis 07/15/17 16:14 Nasal Nasal Screen MRSA (PCR)(DK) - Final Mrsa Negative Assess/Plan/Problems-Billing Assessment: 81 yo male PMH Afib on pradaxa, CAD, DVT, bullous pemphigoid (on prednisone), diastolic CHF, seizure d/o, dementia, prostate cancer s/p suprapubic rueda catheter p/w hematochezia around stools at [facility]. Proteus Mirabilis UTI. no hematochezia here, - Patient Problems (1) Bright red blood per rectum Current Visit: No Status: Acute Priority: High Code(s): K62.5 - HEMORRHAGE OF ANUS AND RECTUM SNOMED Code(s): 564461361 Comment: Resolved. Hct stable. Last BM brown. Continue to hold Pradaxa. Presented with similar February 2016 (2) Leukocytosis Current Visit: Yes Status: Acute Code(s): D72.829 - ELEVATED WHITE BLOOD CELL COUNT, UNSPECIFIED SNOMED Code(s): 565529733 Comment: f/u Proteus sensitivities continue ceftriaxone for now. (3) FORTUNATO (acute kidney injury) Current Visit: Yes Status: Acute Code(s): N17.9 - ACUTE KIDNEY FAILURE, UNSPECIFIED SNOMED Code(s): 85565471 Comment: BMP daily baseline ~0.9-1.1. improved from 1.57 to 1.24. (4) Dementia Current Visit: No Status: Acute Priority: High Code(s): F03.90 - UNSPECIFIED DEMENTIA WITHOUT BEHAVIORAL DISTURBANCE SNOMED Code(s): 80566077 Comment: Reportedly intermittently agitated. Relatively calm on my exam. monitor. treat UTI (5) Atrial fibrillation Current Visit: No Status: Chronic Priority: Medium Code(s): I48.91 - UNSPECIFIED ATRIAL FIBRILLATION SNOMED Code(s): 40192184 Comment: Rate controlled. holding home Pradaxa in setting of hematochezia, plan restart on d/c. (6) Bullous pemphigoid Current Visit: No Status: Acute Code(s): L12.0 - BULLOUS PEMPHIGOID SNOMED Code(s): 64988515 Comment: continue home chronic prednisone. 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 Initially overnight was also getting IVF due to FORTUNATO (8) Diabetes mellitus Current Visit: Yes Status: Acute Code(s): E11.9 - TYPE 2 DIABETES MELLITUS WITHOUT COMPLICATIONS SNOMED Code(s): 10729757 Comment: new diagnosis? A1C 9.0 SSI, POCT qachs. Status and Disposition: medicine inpatient, likely d/c 07/17 Attending: Jevon Herzog
[2017-07-17 06:52] LABS: Hematocrit 39 % (42-52); Hemoglobin 13.2 g/dl (14.0-18.0); Mean Corpuscular HGB Conc 34 g/dl (31-36); Mean Corpuscular Hemoglobin 32 pg (27-31); Mean Corpuscular Volume 93 fL (80-94); Mean Platelet Volume 9 um3 (7.4-10.4); Red Blood Count 4.13 10^6/ul (4.0-5.4); Red Cell Distribution Width 15 % (10.5-15); White Blood Count 12.1 10^3/ul (3.5-10.8)
--- NOTE | 2017-07-17 08:22 | RAD ---
CPT II Codes: 6045F Indication: Routine suprapubic catheter exchange History: Urethra outlet obstruction. Anaesthesia: None Antibiotic prophylaxis: None Fluoroscopy time: 12 seconds Procedure note and findings: The patient was appropriately positioned on the fluoroscopy and a formal time out was performed. The existing suprapubic catheter and surrounding site was prepped and draped in standard sterile fashion. Sterile precautions including cap, mask, gown and sterile gloves were utilized. The old tube was removed and a new 20 [place] suprapubic catheter was positioned in the urinary bladder lumen under fluoroscopic control. The retention balloon was inflated according to staff counselor's specifications. The new tube was injected with dilute contrast confirming appropriate intraluminal position. No leak of contrast into the anterior pelvic compartment is visualized. The patient tolerated the procedure well and was returned to his inpatient room. IMPRESSION: Uncomplicated exchange of percutaneous suprapubic tube with fluoroscopic guidance as described in the report. The 18-gauge Ramires catheter was upsized to a 20-gauge Ramires catheter.
[2017-07-17] MEDS: Insulin LISPRO* 1 UNITS UNIT SUBCUT SCH ×2 (08:28→12:26)
[2017-07-17 08:44] LABS: BUN/Creatinine Ratio 34.4 (8-20); Blood Urea Nitrogen 43 mg/dL (6-24); CO2 Carbon Dioxide 33 mmol/L (22-32); Calcium 8.9 mg/dL (8.6-10.3); Chloride 92 mmol/L (101-111); EGFR African American 71.1 (>60); EGFR Non-African American 55.3 (>60); Glucose 168 mg/dL (70-100); Sodium 133 mmol/L (133-145)
[2017-07-17 08:50] LABS: Anion Gap 8 mmol/L (2-11)
[2017-07-17] MEDS: Potassium Chlor TAB* 10 MEQ TAB.ER PO SCH (10:34)
[2017-07-17] MEDS: Phenytoin CAP(*) 100 MG CAP.ER PO SCH (10:34)
[2017-07-17] MEDS: Docusate CAP* 100 MG PO SCH (10:34)
[2017-07-17] MEDS: Omeprazole CAP* 20 MG PO SCH (10:34)
[2017-07-17] MEDS: Hydrochlorothiazide TAB* 25 MG PO SCH (10:35)
[2017-07-17] MEDS: Metoprolol Succinate XL TAB* 100 MG PO SCH (10:35)
[2017-07-17] MEDS: Senna TAB PO SCH (10:35)
[2017-07-17] MEDS: Torsemide TAB* 20 MG PO SCH (10:35)
[2017-07-17] MEDS: predniSONE TAB* 10 MG PO SCH (10:36)
[2017-07-17 10:54] VITALS: BP 114/63
--- NOTE | 2017-07-17 13:13 | DS ---
DISCHARGE SUMMARY: DATE OF ADMISSION: 07/15/17 DATE OF DISCHARGE: 07/17/17 ADMITTING PROVIDER: Anitra Rajput MD. ATTENDING PHYSICIAN: Jevon Herzog MD. PRIMARY CARE PROVIDER: Dr. [facility] of [facility]. PRINCIPAL DIAGNOSES: Hematochezia potentially from hemorrhoids in the setting of Pradaxa use; acute kidney injury; Proteus urinary tract infection in the setting of chronic suprapubic catheter; diabetes mellitus (? new diagnosis). HISTORY OF PRESENT ILLNESS AND HOSPITAL COURSE: Evelio Osman is an 81-year- old male with a PMH of chronic diastolic CHF; atrial fibrillation, on Pradaxa; coronary artery disease, status post stents; hypertension; hyperlipidemia; dementia; seizure disorder; depression; prostate cancer, status post suprapubic catheter placemen; status post pacemaker; bullous pemphigoid, on chronic steroids, who resides at [facility]. He was transferred to [facility] emergency room with report of blood around hard stools at [facility]. The patient was agitated and unhappy to be in the hospital and did not provide much additional history on day of admission. His Pradaxa was stopped. The patient did not have any further episodes of hematochezia while in the hospital and in fact had regular bowel movement on the hospital day #2. His suprapubic catheter was exchanged as previously scheduled with Dr. Ike Garces of interventional Radiology. He initially had a leukocytosis of 24.7 and a slightly elevated temperature at 99.0. His urinalysis was positive with 2+ leukocyte esterase and his urine culture was positive Proteus mirabilis with sensitivities pending. He was given 2 days of IV ceftriaxone in the hospital and will be discharged on oral cefdinir for an additional 8 days for a total of 10 days' course. The patient was noted to have an A1c of 9.0 after he was hyperglycemic and will be started on new medications metformin for presumably new diagnosis of diabetes mellitus. His Pradaxa which has been held (taking for his AFib) should be restarted on discharge. He was otherwise without complaint and eager to return to [facility]. His white count improved to 12.1 on day of admission and his hemoglobin and hematocrit were stable in the mid 13s over between 39 and 41 of hematocrit. Hemodynamics were stable. Initial creatinine was 1.57, improved to 1.25 and got some IV fluids overnight on hospital day #1. DISCHARGE MEDICATIONS: 1. Cefdinir 300 mg p.o. b.i.d. for 8 more days. 2. Metformin 500 mg p.o. b.i.d. (new). 3. Spironolactone 25 mg p.o. daily. 4. Pradaxa 150 mg p.o. b.i.d. 5. Eucerin topical cream q. p.m. 6. Travoprost 0.004% 1 drop both eyes at bedtime. 7. Cholecalciferol 5000 units p.o. monthly. 8. Oyster shell calcium plus D 500/200 mg 1 tab p.o. b.i.d. 9. Brinzolamide/brimonidine (Simbrinza) ophthalmic suspension 1 drop both eyes t.i.d. 10. Torsemide 80 mg p.o. q. a.m. 11. Prednisone 5 mg q. a.m. 12. Potassium chloride 10 mEq q. a.m. 13. Phenytoin 300 mg p.o. b.i.d. 14. Metoprolol succinate 100 mg p.o. daily. 15. [place] 5/325 mg 1 tab p.o. q. 6 hours p.r.n. for pain. 16. Hydrochlorothiazide 25 mg p.o. daily. DIET: Carbohydrate consistent for the new diagnosis of diabetes mellitus. ACTIVITY LEVEL: No restrictions, but patient is largely bedbound per his report. FOLLOWUP: The patient will follow up with physician at [facility] (Dr. Springer). His A1c should be rechecked in 3 months and he should have point-of- care testing of his blood glucose daily, though of note, he often refused these in the hospital. TIME SPENT: Time spent on discharge, 35 minutes. [id number]/[facility] #: [id number] CARISSA
== END 2017-07-17 15:15 | DRG 699 ==
LOC: ED 10:55 → MED 14:08
PROVIDERS: ADMIT Internal Medicine; ATTEND Internal Medicine
PROC: 0T2BX0Z Change Drainage Device in Bladder, External Approach (ICD-10-PCS; principal; 2017-07-15)
DX: T83.518A Infection and inflammatory reaction due to other urinary catheter, initial encounter (principal); N17.9 Acute kidney failure, unspecified; E11.65 Type 2 diabetes mellitus with hyperglycemia; E66.01 Morbid (severe) obesity due to excess calories; I48.91 Unspecified atrial fibrillation; I11.0 Hypertensive heart disease with heart failure; E86.0 Dehydration; I50.32 Chronic diastolic (congestive) heart failure; L12.0 Bullous pemphigoid; E78.00 Pure hypercholesterolemia, unspecified; N39.0 Urinary tract infection, site not specified; Z66 Do not resuscitate; Y73.1 Therapeutic (nonsurgical) and rehabilitative gastroenterology and urology devices associated with adverse incidents; K64.9 Unspecified hemorrhoids; B96.4 Proteus (mirabilis) (morganii) as the cause of diseases classified elsewhere; F03.90 Unspecified dementia, unspecified severity, without behavioral disturbance, psychotic disturbance, mood disturbance, and anxiety; F41.0 Panic disorder [episodic paroxysmal anxiety]; T45.515A Adverse effect of anticoagulants, initial encounter; I25.10 Atherosclerotic heart disease of native coronary artery without angina pectoris; G40.909 Epilepsy, unspecified, not intractable, without status epilepticus; H40.9 Unspecified glaucoma; Z95.5 Presence of coronary angioplasty implant and graft; Z98.42 Cataract extraction status, left eye; Z98.41 Cataract extraction status, right eye; Z86.14 Personal history of Methicillin resistant Staphylococcus aureus infection; Z86.718 Personal history of other venous thrombosis and embolism; Z85.46 Personal history of malignant neoplasm of prostate; Y92.9 Unspecified place or not applicable; Z90.49 Acquired absence of other specified parts of digestive tract; Z95.0 Presence of cardiac pacemaker; Z87.891 Personal history of nicotine dependence; Z79.52 Long term (current) use of systemic steroids; Z79.01 Long term (current) use of anticoagulants; Z79.84 Long term (current) use of oral hypoglycemic drugs; Z68.30 Body mass index [BMI] 30.0-30.9, adult
CPT/HCPCS: 36415; 51710; 75984; 80048; 80053; 80185; 81003; 81015; 83036; 85014; 85018; 85025; 85610; 85730; 86850; 86870; 86880; 86900; 86901; 87077; 87086; 87184; 87186; 87641; 93005; A9270-GY; J0696; J7512

== ENCOUNTER 2017-08-03 06:05 | Inpatient (IN) | payer MEDICARE, MEDICAID ==
[2017-08-03 06:51] LABS: ABS Basophils 0.2 10^3/ul (0-0.2); ABS Eosinophils 0 10^3/ul (0-0.6); ABS Lymphocytes 2.8 10^3/ul (1.0-4.8); ABS Monocytes 0.9 10^3/ul (0-0.8); ABS Neutrophils 14.3 10^3/ul (1.5-7.7); ABS Nucleated RBC 0 10^3/ul; Eosinophil % 0.1 % (0-6); Hematocrit 49 % (42-52); Hemoglobin 16.8 g/dl (14.0-18.0); Lymphocyte % 15.3 % (25-47); Mean Corpuscular HGB Conc 34 g/dl (31-36); Mean Corpuscular Hemoglobin 32 pg (27-31); Mean Corpuscular Volume 95 fL (80-94); Mean Platelet Volume 9 um3 (7.4-10.4); Nucleated Red Blood Cells % 0; Platelet Count 289 10^3/ul (150-450); Red Blood Count 5.19 10^6/ul (4.0-5.4); Red Cell Distribution Width 16 % (10.5-15); White Blood Count 18.2 10^3/ul (3.5-10.8)
[2017-08-03] MEDS ORDERED: Pantoprazole IV* 40 MG IV ONE (07:02)
[2017-08-03] MEDS ORDERED: NS 0.9% 1000 ML* 1,000 ML IV ONE (07:12)
[2017-08-03 07:17] LABS: INR 1.18 (0.77-1.02)
--- NOTE | 2017-08-03 07:51 | RAD ---
HISTORY: GI bleed COMPARISONS: March 11, 2016 VIEWS: 1: frontal portable view of the chest at 6:50 AM FINDINGS: LINES AND TUBES: None. CARDIOMEDIASTINAL SILHOUETTE: The cardiomediastinal silhouette is stable. PLEURA: The costophrenic angles are sharp. No pleural abnormalities are noted. LUNG PARENCHYMA: The lungs are clear. ABDOMEN: The upper abdomen is clear. There is no subphrenic gas. BONES AND SOFT TISSUES: Degenerative changes are noted IMPRESSION: NO ACTIVE CARDIOPULMONARY DISEASE.
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
[2017-08-03 08:49] LABS: ABS Basophils 0.1 10^3/ul (0-0.2); ABS Eosinophils 0 10^3/ul (0-0.6); ABS Lymphocytes 2.6 10^3/ul (1.0-4.8); ABS Neutrophils 12.4 10^3/ul (1.5-7.7); ABS Nucleated RBC 0.01 10^3/ul; Eosinophil % 0.1 % (0-6); Hematocrit 45 % (42-52); Hemoglobin 15.2 g/dl (14.0-18.0); Lymphocyte % 16.3 % (25-47); Mean Corpuscular HGB Conc 34 g/dl (31-36); Mean Corpuscular Hemoglobin 33 pg (27-31); Mean Corpuscular Volume 96 fL (80-94); Mean Platelet Volume 10 um3 (7.4-10.4); Nucleated Red Blood Cells % 0; Platelet Count 249 10^3/ul (150-450); Red Blood Count 4.63 10^6/ul (4.0-5.4); Red Cell Distribution Width 16 % (10.5-15); White Blood Count 16.2 10^3/ul (3.5-10.8)
[2017-08-03] MEDS ORDERED: NS 0.9% 1000 ML* 1,000 ML IV SCH (09:00)
[2017-08-03] MEDS: Phenytoin CAP(*) 100 MG CAP.ER PO SCH ×2 (09:12→22:41)
[2017-08-03] MEDS: predniSONE TAB* 5 MG PO SCH (09:12)
[2017-08-03] MEDS: Brinzolamid/Brimonidin OPH(NF) 1 DROP BTL BOTH EYES SCH ×3 (11:51→22:24)
--- NOTE | 2017-08-03 12:03 | HP ---
HISTORY AND PHYSICAL: DATE OF ADMISSION: 08/03/17. ADMITTING PROVIDER: Jevon Herzog MD. PRIMARY CARE PHYSICIAN: Dr. Springer of [facility] CHIEF COMPLAINT: Bright red blood per rectum. HISTORY OF PRESENT ILLNESS: Evelio Osman is an 81-year-old male, with a past medical history of CAD, hyperlipidemia, chronic Afib, on Pradaxa, diastolic heart failure, dementia, seizure disorder, prostate cancer, status post suprapubic catheter placement, depression, status post craniotomy, status post cholecystectomy, bullous pemphigoid, on chronic steroids, status post permanent pacemaker placement, who was recently admitted, 07/15/17 to 07/17/17, for blood per rectum and Proteus mirabilis and E Faecalis UTI, which was treated with Cefdinir for 8 days after IV ceftriaxone. The patient returns after a reported large bright red blood bowel movement between 4:30 and 5 a.m. The patient is a poor historian, unable to attest whether or not he even had a bowel movement. Denies any current complaints. The patient's hemoglobin is 16.8, blood pressure 101/55, respiratory rate 84. These were stable at [facility] during the event and is currently on 4 antihypertensives. He is being admitted for bright red blood per rectum in the setting of Pradaxa use for Afib. Nursing reports that he has been "meaner" ever since his initial UTI diagnosis mid July, often refusing his nighttime medications including his Dilantin. He has been getting his morning meds. He refused Pradaxa once in the last [address] Bass of emergency room had initially tried to arrange for transfer to [facility] ICU while 2 units of blood were hanging, but there was no ambulance service available that would be actively transfusing blood. Dr. Sow is in the endoscopy suite today and Dr. Bass has spoken with him and will see the patient. HOME MEDICATIONS: Include: 1. Spironolactone 25 mg daily. 2. Torsemide 80 mg p.o. q.a.m. 3. Prednisone 5 mg daily. 4. Senokot 1 tab p.o. q.a.m. (has been refusing). 5. Metoprolol 100 mg p.o. daily. 6. Potassium chloride 10 mEq p.o. daily. 7. Hydrochlorothiazide 25 mg p.o. daily. 8. Metformin 500 mg p.o. b.i.d. 9. Phenytoin 300 mg p.o. b.i.d. 10. Pradaxa 150 mg p.o. b.i.d. 11. Simbrinza ophthalmic solution 1 drop to both eyes t.i.d., has been refusing. 12. Belsano 5/325 mg 1 tab p.o. q.6 hours p.r.n. 13. Minerin 1 application topical q.p.m. 14. Jackson's Butt Paste 1 application topical t.i.d. 15. Cholecalciferol 5000 units p.o. monthly. ALLERGIES: PENICILLIN. FAMILY HISTORY: Unavailable as the patient is a limited historian with dementia. SOCIAL HISTORY: He has a [id number] history, currently a nonsmoker. Dilcia Osman is his healthcare proxy. REVIEW OF SYSTEMS: Limited, as the patient is a very poor historian. He denies any pain, recent bowel movements, chest pressure, nausea, vomiting, fevers. PHYSICAL EXAMINATION GENERAL APPEARANCE: No acute distress. VITAL SIGNS: Initial blood pressure 117/65, satting 95% on room air, heart rate 90, temperature 97.9. Current blood pressure 156/75, heart rate 77. HEENT: Normocephalic, atraumatic. Pupils are equal, round, and reactive to light. NECK: Supple. No cervical lymphadenopathy. RESPIRATORY: Clear to auscultation bilaterally, with no wheezes, rales or rhonchi. CARDIOVASCULAR: Regular rate and rhythm. No murmurs, rubs, or gallops. ABDOMEN: Obese, soft, nontender, and nondistended. Suprapubic catheter with yellow urine. EXTREMITIES: Warm, well perfused. Thin skin in bilateral legs. NEUROLOGIC: Meteorology Instructor strength is 5/5 in upper extremities. Cranial nerves II through XII intact grossly. Dementia. Oriented to [facility] and [facility], but not year. LABORATORY DATA: White count 18.2, hemoglobin 16.8, platelets 289. INR 1.18. Hematocrit 49. Sodium 136, potassium 4.0, chloride 90, carbon dioxide 28, BUN 63, creatinine 2.49, alkaline phosphatase 112, total bilirubin 0.50. IMAGING: Chest x-ray: No active cardiopulmonary disease. ASSESSMENT AND PLAN: The patient is an 81-year-old male with multiple medical problems, on Pradaxa for Afib, with recent lower GI bleed suspected due to hemorrhoids that had resolved by hospital day #2, presenting with FORTUNATO and bright red blood per rectum per fci report. Hemoglobin is stable and improved since discharged. Hemodynamically stable. He will be admitted to medical telemetry. Get CBCs every [address] Sow is in the endoscopy suit and will see later today. Hold his Pradaxa. He is status post Protonix IV in the emergency room. I suspect either diverticular or hemorrhoidal bleed in the setting of FORTUNATO and Pradaxa use for his Afib. Atrial fibrillation. Hold his Pradaxa. Continue telemetry monitoring. Keep magnesium greater than 2, potassium greater than 4. Acute kidney injury. Get urine lytes. I suspect acute kidney injury secondary to dehydration and recent GI bleed vs ATN from recent UTI (and now with increased leukocytosis). We will give him IV fluids and BMP daily. UA with reflex Urine Culture. Hypertension. Hold antihypertensives in the setting of GI bleed. Seizure disorder. We will continue his phenytoin 300 mg p.o. b.i.d. The patient is a DNR/DNI. Admitted as inpatient status. [id number]/[facility] #: [id number] [facility] HEALTHTequila
[2017-08-03] MEDS: Zinc Oxide 16% PASTE* (Butt Paste) 1 TUBE TOPICAL SCH ×4 (13:01→22:41)
[2017-08-03 13:49] LABS: ABS Basophils 0.1 10^3/ul (0-0.2); ABS Eosinophils 0 10^3/ul (0-0.6); ABS Lymphocytes 3.2 10^3/ul (1.0-4.8); ABS Monocytes 0.9 10^3/ul (0-0.8); ABS Neutrophils 14.1 10^3/ul (1.5-7.7); ABS Nucleated RBC 0.03 10^3/ul; Eosinophil % 0.2 % (0-6); Hematocrit 47 % (42-52); Hemoglobin 15.6 g/dl (14.0-18.0); Lymphocyte % 17.4 % (25-47); Mean Corpuscular HGB Conc 33 g/dl (31-36); Mean Corpuscular Hemoglobin 32 pg (27-31); Mean Corpuscular Volume 95 fL (80-94); Mean Platelet Volume 10 um3 (7.4-10.4); Nucleated Red Blood Cells % 0.2; Platelet Count 259 10^3/ul (150-450); Red Blood Count 4.96 10^6/ul (4.0-5.4); Red Cell Distribution Width 17 % (10.5-15); White Blood Count 18.3 10^3/ul (3.5-10.8)
[2017-08-03 16:43] LABS: Urine Appearance Cloudy; Urine Blood 2+ (Negative); Urine Color Yellow; Urine Ketones Negative (Negative); Urine Protein 2+(100 mg/dL) (Negative); Urine Specific Gravity 1.017 (1.010-1.030); Urine Urobilinogen Negative (Negative)
[2017-08-03] MEDS ORDERED: Nitrofurantoin Macrocrystals* 100 MG CAP PO SCH (22:00)
[2017-08-03] MEDS: cefTRIAXone VIAL(*) 1,000 MG in D5W 50 ML BAG* 50 ML IVPB SCH (22:33)
[2017-08-03] MEDS: Latanoprost 0.005%* 2.5 ml BTL BOTH EYES SCH (22:41)
--- NOTE | 2017-08-03 22:56 | CONS ---
CC: Dr. Solomon Aparicio * CONSULTATION REPORT: DATE OF CONSULT: 08/03/17 REQUESTING PHYSICIAN: Dr. Herzog. INDICATION: Hematochezia. NARRATIVE: Mr. Osman is a pleasant 81-year-old gentleman, who was brought in this morning to the emergency room for bright red blood per rectum. He recently had admission for hemorrhoidal bleeding. He is on Pradaxa. He currently denies any abdominal pain. He was being cleaned up after a large bowel movement; when I saw him, the stool was brown. PAST MEDICAL HISTORY: Significant for chronic UTIs; dementia; coronary artery disease; AFib, on Pradaxa; congestive heart failure; seizure disorder; prostate cancer; depression; craniotomy; cholecystectomy; he is on chronic steroids for bullous pemphigoid; he also has a pacemaker. MEDICATIONS: Upon admission include: 1. Spironolactone. 2. Torsemide. 3. Prednisone. 4. Senokot. 5. Metoprolol. 6. Potassium. 7. Hydrochlorothiazide. 8. Metformin. 9. Phenytoin. 10. Pradaxa. 11. [place]. ALLERGIES: PENICILLIN. FAMILY HISTORY: Denies any colorectal malignancies in the family. SOCIAL HISTORY: He had smoked in the past, currently does not. REVIEW OF SYSTEMS: Twelve systems are reviewed, other than that mentioned in the HPI were unremarkable. PHYSICAL EXAM: Vital Signs: Temperature is 97.1, blood pressure is 117/64, pulse is 80. General: Chronically ill-appearing male, in no apparent distress , appears his stated age, alert, pleasant, fluent. HEENT: Mucous membranes are moist without lesions, ulcers, or exudates. Neck is supple. Trachea is midline. Head is normocephalic, atraumatic. Heart: Regular rate and rhythm. Lungs: Clear to auscultation. Abdomen: Positive bowel sounds, soft, nondistended. He is obese. Skin is warm and dry. He does have a suprapubic catheter in place. Rectal Exam: Brown stool. No masses were felt. No external hemorrhoids were seen. LABORATORY DATA: Of note, hemoglobin is 15.6 down from 16.8, platelets of 259, BUN is 63, creatinine is 2.49, white count is 18.3. ASSESSMENT AND PLAN: This is a pleasant 81-year-old gentleman, who was brought in because of bright red blood per rectum. He currently is having brown stools. His hemoglobin is very stable. At this point, I do not think, he needs any GI evaluation. We will continue to monitor his situation. [id number]/[facility] #: [id number] MTDD
[2017-08-03] MEDS: Linezolid 600 MG IVPREMIX(*) 600 MG/300 ML BAG IVPB SCH (23:10)
[2017-08-04] MEDS: Brinzolamid/Brimonidin OPH(NF) 1 DROP BTL BOTH EYES SCH ×3 (09:42→21:19)
[2017-08-04] MEDS: Phenytoin CAP(*) 100 MG CAP.ER PO SCH ×2 (10:01→21:19)
[2017-08-04] MEDS: predniSONE TAB* 5 MG PO SCH (10:01)
[2017-08-04] MEDS: Linezolid 600 MG IVPREMIX(*) 600 MG/300 ML BAG IVPB SCH (10:04)
[2017-08-04] MEDS: Zinc Oxide 16% PASTE* (Butt Paste) 1 TUBE TOPICAL SCH ×3 (10:07→21:17)
--- NOTE | 2017-08-04 16:26 | PN ---
Subjective Date of Service: 08/04/17 Interval History: Pt is feeling ok. He denies any pain. No SOB. He does not speak much. Objective Active Medications: Brinzolamide/Brimonidine Tartrate (Simbrinza Oph.Susp(Nf)) 1 drop BOTH EYES TID [facility] Last Admin: 08/04/17 14:05 Dose: Not Given Ceftriaxone Sodium 1,000 mg/ (Dextrose) 50 mls @ 200 mls/hr IVPB Q24H [facility] Last Admin: 08/03/17 22:33 Dose: 200 mls/hr Linezolid (Zyvox 600 Mg Ivpremix(*)) 600 mg in 300 mls @ 200 mls/hr IVPB Q12H [facility] Last Admin: 08/04/17 10:04 Dose: 200 mls/hr Latanoprost (Xalatan 0.005%*) 1 drop BOTH EYES BEDTIME [facility] Last Admin: 08/03/17 22:41 Dose: Not Given Phenytoin Sodium (Dilantin Cap(*)) 300 mg PO BID [facility] Last Admin: 08/04/17 10:01 Dose: 300 mg Prednisone (Deltasone Tab*) 5 mg PO QAM [facility] Last Admin: 08/04/17 10:01 Dose: 5 mg Zinc Oxide (Jackson's Butt Paste) 1 applic TOPICAL TID [facility] Last Admin: 08/04/17 14:41 Dose: 1 applic Vital Signs - 8 hr 08/04/17 11:58 Temperature 97.3 F Pulse Rate 76 Respiratory 18 Rate Blood Pressure 136/66 (mmHg) O2 Sat by Pulse 97 Oximetry Oxygen Devices in Use Now: None Appearance: Elderly male lying in bed, NAD Eyes: No Scleral Icterus Ears/Nose/Mouth/Throat: Mucous Membranes Moist Respiratory: Symmetrical Chest Expansion and Respiratory Effort, Clear to Auscultation - anteriorly Cardiovascular: NL Sounds; No Murmurs; No JVD, RRR, No Edema Abdominal: NL Sounds; No Tenderness; No Distention Extremities: No Clubbing, Cyanosis Skin: No Rash or Ulcers, No Nodules or Sclerosis Neurological: - - pleasantly confused, not very conversant Result Diagrams: 08/03/17 12:42 08/03/17 06:31 Additional Lab and Data: Lab Results 08/03/17 08/03/17 08/03/17 Range/Units 06:31 06:31 06:31 WBC 18.2 H (3.5-10.8) 10^3/ul RBC 5.19 (4.0-5.4) 10^6/ul Hgb 16.8 (14.0-18.0) g/dl Hct 49 (42-52) % MCV 95 H (80-94) fL MCH 32 H (27-31) pg MCHC 34 (31-36) g/dl RDW 16 H (10.5-15) % Plt Count 289 (150-450) 10^3/ul MPV 9 (7.4-10.4) um3 Neut % (Auto) 78.5 (38-83) % Lymph % (Auto) 15.3 L (25-47) % [place] % (Auto) 4.9 (1-9) % Eos % (Auto) 0.1 (0-6) % Baso % (Auto) 1.2 (0-2) % Absolute Neuts (auto) 14.3 H (1.5-7.7) 10^3/ul Absolute Lymphs (auto) 2.8 (1.0-4.8) 10^3/ul Absolute Monos (auto) 0.9 H (0-0.8) 10^3/ul Absolute Eos (auto) 0 (0-0.6) 10^3/ul Absolute Basos (auto) 0.2 (0-0.2) 10^3/ul Absolute Nucleated RBC 0 10^3/ul Nucleated RBC % 0 INR (Anticoag Therapy) 1.18 H (0.77-1.02) APTT 39.4 H (26.0-36.3) seconds Sodium 136 (133-145) mmol/L Potassium 4.0 (3.5-5.0) mmol/L Chloride 90 L (101-111) mmol/L Carbon Dioxide 28 (22-32) mmol/L Anion Gap 18 H (2-11) mmol/L BUN 63 H (6-24) mg/dL Creatinine 2.49 H (0.67-1.17) mg/dL Est GFR ( Amer) 32.1 (>60) Est GFR (Non-Af Amer) 25.0 (>60) BUN/Creatinine Ratio 25.3 H (8-20) Glucose 172 H (70-100) mg/dL Calcium 10.4 H (8.6-10.3) mg/dL Total Bilirubin 0.50 (0.2-1.0) mg/dL AST 20 (13-39) U/L ALT 19 (7-52) U/L Alkaline Phosphatase 112 H (34-104) U/L Total Protein 7.4 (6.4-8.9) g/dL Albumin 3.6 (3.2-5.2) g/dL Globulin 3.8 (2-4) g/dL Albumin/Globulin Ratio 0.9 L (1-3) Blood Type Antibody Screen Crossmatch 08/03/17 Range/Units 06:31 WBC (3.5-10.8) 10^3/ul RBC (4.0-5.4) 10^6/ul Hgb (14.0-18.0) g/dl Hct (42-52) % MCV (80-94) fL MCH (27-31) pg MCHC (31-36) g/dl RDW (10.5-15) % Plt Count (150-450) 10^3/ul MPV (7.4-10.4) um3 Neut % (Auto) (38-83) % Lymph % (Auto) (25-47) % [place] % (Auto) (1-9) % Eos % (Auto) (0-6) % Baso % (Auto) (0-2) % Absolute Neuts (auto) (1.5-7.7) 10^3/ul Absolute Lymphs (auto) (1.0-4.8) 10^3/ul Absolute Monos (auto) (0-0.8) 10^3/ul Absolute Eos (auto) (0-0.6) 10^3/ul Absolute Basos (auto) (0-0.2) 10^3/ul Absolute Nucleated RBC 10^3/ul Nucleated RBC % INR (Anticoag Therapy) (0.77-1.02) APTT (26.0-36.3) seconds Sodium (133-145) mmol/L Potassium (3.5-5.0) mmol/L Chloride (101-111) mmol/L Carbon Dioxide (22-32) mmol/L Anion Gap (2-11) mmol/L BUN (6-24) mg/dL Creatinine (0.67-1.17) mg/dL Est GFR ( Amer) (>60) Est GFR (Non-Af Amer) (>60) BUN/Creatinine Ratio (8-20) Glucose (70-100) mg/dL Calcium (8.6-10.3) mg/dL Total Bilirubin (0.2-1.0) mg/dL AST (13-39) U/L ALT (7-52) U/L Alkaline Phosphatase (34-104) U/L Total Protein (6.4-8.9) g/dL Albumin (3.2-5.2) g/dL Globulin (2-4) g/dL Albumin/Globulin Ratio (1-3) Blood Type A Negative Antibody Screen Pending Crossmatch See Detail Microbiology and Other Data: Microbiology 08/04/17 06:30 Nasal Screen MRSA (PCR)(DK) - Final Nasal Mrsa Negative 08/03/17 16:55 Nasal Screen MRSA (PCR)(DK) - Final Nasal Mrsa Negative Assess/Plan/Problems-Billing Mr Osman is an 81 yo M who has a h/o CAD, afib on pradaxa, diastolic CHF, dementia, seizure disorder and bullous pemphigoid on chronic steroids who presented to the ER with c/o BRBPR. - Patient Problems (1) Bright red blood per rectum Current Visit: Yes Status: Acute Code(s): K62.5 - HEMORRHAGE OF ANUS AND RECTUM SNOMED Code(s): 856722399 Comment: No further episodes. Pradaxa remains on hold. ? hemorrhoidal bleed. H/H is completely stable. (2) FORTUNATO (acute kidney injury) Current Visit: Yes Status: Acute Code(s): N17.9 - ACUTE KIDNEY FAILURE, UNSPECIFIED SNOMED Code(s): 96590477 Comment: THe patient's creatinine is about double his baseline. Unclear why his creatinine is up now-? secondary to volume depletion. Will get follow up lab work now and repeat again tomorrow. Hold torsemide. (3) Bullous pemphigoid Current Visit: Yes Status: Acute Code(s): L12.0 - BULLOUS PEMPHIGOID SNOMED Code(s): 03761863 Comment: Continue prednisone 5mg daily. (4) Dementia Current Visit: Yes Status: Acute Code(s): F03.90 - UNSPECIFIED DEMENTIA WITHOUT BEHAVIORAL DISTURBANCE SNOMED Code(s): 84670196 Comment: Reorient as needed. (5) Diastolic CHF Current Visit: Yes Status: Acute Code(s): I50.30 - UNSPECIFIED DIASTOLIC ( CONGESTIVE) HEART FAILURE SNOMED Code(s): 617292210 Comment: No signs of fluid overload at this time. Will continue to hold torsemide for now. (6) DVT prophylaxis Current Visit: Yes Status: Chronic Code(s): MJO2053 - SNOMED Code(s): 099372824 Comment: SCDs only secondary to BRBPR (7) DNR (do not resuscitate) Current Visit: Yes Status: Acute
[2017-08-04 17:30] LABS: EGFR Non-African American 22.6 (>60)
[2017-08-04] MEDS: KCL 10 MEQ/50 ML IVPREMIX* 10 MEQ/50 ML BAG IV SCH (19:26)
[2017-08-04] MEDS: Latanoprost 0.005%* 2.5 ml BTL BOTH EYES SCH (21:19)
[2017-08-04] MEDS: cefTRIAXone VIAL(*) 1,000 MG in D5W 50 ML BAG* 50 ML IVPB SCH (23:30)
[2017-08-05] MEDS: Linezolid 600 MG IVPREMIX(*) 600 MG/300 ML BAG IVPB SCH ×2 (00:01→10:43)
[2017-08-05] MEDS: KCL 10 MEQ/50 ML IVPREMIX* 10 MEQ/50 ML BAG IV SCH ×3 (02:42→05:15)
[2017-08-05] MEDS: Brinzolamid/Brimonidin OPH(NF) 1 DROP BTL BOTH EYES SCH ×3 (09:33→21:55)
[2017-08-05] MEDS: Phenytoin CAP(*) 100 MG CAP.ER PO SCH ×2 (09:41→21:55)
[2017-08-05] MEDS: predniSONE TAB* 5 MG PO SCH (09:41)
[2017-08-05] MEDS ORDERED: KCL 20 MEQ/100 ML IVPREMIX* 20 MEQ/100 ML BAG IV ONE (10:12)
[2017-08-05] MEDS ORDERED: Potassium Chloride LIQUID* 20 MEQ PACKET PO ONE (10:12)
[2017-08-05] MEDS: NS 0.9% 1000 ML* 1,000 ML IV SCH (10:43)
[2017-08-05] MEDS: Zinc Oxide 16% PASTE* (Butt Paste) 1 TUBE TOPICAL SCH ×3 (10:43→21:56)
[2017-08-05 11:25] LABS: Hematocrit 38 % (42-52); Hemoglobin 13.1 g/dl (14.0-18.0); Mean Corpuscular HGB Conc 35 g/dl (31-36); Mean Corpuscular Hemoglobin 33 pg (27-31); Mean Corpuscular Volume 95 fL (80-94); Mean Platelet Volume 9 um3 (7.4-10.4); Platelet Count 192 10^3/ul (150-450); Red Blood Count 3.99 10^6/ul (4.0-5.4); Red Cell Distribution Width 16 % (10.5-15); White Blood Count 9.7 10^3/ul (3.5-10.8)
[2017-08-05 11:37] LABS: EGFR Non-African American 35.2 (>60)
[2017-08-05] MEDS ORDERED: Ondansetron INJ* 2 MG/ML VIAL IV PRN (13:10)
--- NOTE | 2017-08-05 13:15 | PN ---
Subjective Date of Service: 08/05/17 Interval History: Pt is feeling poorly. He states he has an upset stomach. He denies any pain or SOB. Objective Active Medications: Brinzolamide/Brimonidine Tartrate (Simbrinza Oph.Susp(Nf)) 1 drop BOTH EYES TID [facility] Last Admin: 08/05/17 09:33 Dose: Not Given Ceftriaxone Sodium 1,000 mg/ (Dextrose) 50 mls @ 200 mls/hr IVPB Q24H [facility] Last Admin: 08/04/17 23:30 Dose: 200 mls/hr Linezolid (Zyvox 600 Mg Ivpremix(*)) 600 mg in 300 mls @ 200 mls/hr IVPB Q12H [facility] Last Admin: 08/05/17 10:43 Dose: 200 mls/hr Sodium Chloride (Ns 0.9% 1000 Ml*) 1,000 mls @ 100 mls/hr IV PER RATE [facility] Last Admin: 08/05/17 10:43 Dose: 100 mls/hr Latanoprost (Xalatan 0.005%*) 1 drop BOTH EYES BEDTIME [facility] Last Admin: 08/04/17 21:19 Dose: Not Given Phenytoin Sodium (Dilantin Cap(*)) 300 mg PO BID [facility] Last Admin: 08/05/17 09:41 Dose: 300 mg Prednisone (Deltasone Tab*) 5 mg PO QAM [facility] Last Admin: 08/05/17 09:41 Dose: 5 mg Zinc Oxide (Jackson's Butt Paste) 1 applic TOPICAL TID [facility] Last Admin: 08/05/17 10:43 Dose: 1 applic Vital Signs - 8 hr 08/05/17 08/05/17 07:34 08:00 Temperature 97.9 F Pulse Rate 67 Respiratory 16 16 Rate Blood Pressure 124/56 (mmHg) O2 Sat by Pulse 97 Oximetry Oxygen Devices in Use Now: None Appearance: Elderly male sleeping sitting up in bed, awakens to voice, NAD Eyes: No Scleral Icterus Ears/Nose/Mouth/Throat: Mucous Membranes Moist Respiratory: Symmetrical Chest Expansion and Respiratory Effort, Clear to Auscultation Cardiovascular: NL Sounds; No Murmurs; No JVD, RRR, - - trace LE edema with brawny discoloration of the skin Abdominal: NL Sounds; No Tenderness; No Distention Extremities: No Clubbing, Cyanosis Skin: No Rash or Ulcers, No Nodules or Sclerosis Neurological: - - pleasantly confused Result Diagrams: 08/05/17 11:12 08/05/17 11:12 Additional Lab and Data: Lab Results 08/03/17 08/03/17 08/03/17 Range/Units 06:31 06:31 06:31 WBC 18.2 H (3.5-10.8) 10^3/ul RBC 5.19 (4.0-5.4) 10^6/ul Hgb 16.8 (14.0-18.0) g/dl Hct 49 (42-52) % MCV 95 H (80-94) fL MCH 32 H (27-31) pg MCHC 34 (31-36) g/dl RDW 16 H (10.5-15) % Plt Count 289 (150-450) 10^3/ul MPV 9 (7.4-10.4) um3 Neut % (Auto) 78.5 (38-83) % Lymph % (Auto) 15.3 L (25-47) % [place] % (Auto) 4.9 (1-9) % Eos % (Auto) 0.1 (0-6) % Baso % (Auto) 1.2 (0-2) % Absolute Neuts (auto) 14.3 H (1.5-7.7) 10^3/ul Absolute Lymphs (auto) 2.8 (1.0-4.8) 10^3/ul Absolute Monos (auto) 0.9 H (0-0.8) 10^3/ul Absolute Eos (auto) 0 (0-0.6) 10^3/ul Absolute Basos (auto) 0.2 (0-0.2) 10^3/ul Absolute Nucleated RBC 0 10^3/ul Nucleated RBC % 0 INR (Anticoag Therapy) 1.18 H (0.77-1.02) APTT 39.4 H (26.0-36.3) seconds Sodium 136 (133-145) mmol/L Potassium 4.0 (3.5-5.0) mmol/L Chloride 90 L (101-111) mmol/L Carbon Dioxide 28 (22-32) mmol/L Anion Gap 18 H (2-11) mmol/L BUN 63 H (6-24) mg/dL Creatinine 2.49 H (0.67-1.17) mg/dL Est GFR ( Amer) 32.1 (>60) Est GFR (Non-Af Amer) 25.0 (>60) BUN/Creatinine Ratio 25.3 H (8-20) Glucose 172 H (70-100) mg/dL Calcium 10.4 H (8.6-10.3) mg/dL Total Bilirubin 0.50 (0.2-1.0) mg/dL AST 20 (13-39) U/L ALT 19 (7-52) U/L Alkaline Phosphatase 112 H (34-104) U/L Total Protein 7.4 (6.4-8.9) g/dL Albumin 3.6 (3.2-5.2) g/dL Globulin 3.8 (2-4) g/dL Albumin/Globulin Ratio 0.9 L (1-3) Blood Type Antibody Screen Crossmatch 08/03/17 Range/Units 06:31 WBC (3.5-10.8) 10^3/ul RBC (4.0-5.4) 10^6/ul Hgb (14.0-18.0) g/dl Hct (42-52) % MCV (80-94) fL MCH (27-31) pg MCHC (31-36) g/dl RDW (10.5-15) % Plt Count (150-450) 10^3/ul MPV (7.4-10.4) um3 Neut % (Auto) (38-83) % Lymph % (Auto) (25-47) % [place] % (Auto) (1-9) % Eos % (Auto) (0-6) % Baso % (Auto) (0-2) % Absolute Neuts (auto) (1.5-7.7) 10^3/ul Absolute Lymphs (auto) (1.0-4.8) 10^3/ul Absolute Monos (auto) (0-0.8) 10^3/ul Absolute Eos (auto) (0-0.6) 10^3/ul Absolute Basos (auto) (0-0.2) 10^3/ul Absolute Nucleated RBC 10^3/ul Nucleated RBC % INR (Anticoag Therapy) (0.77-1.02) APTT (26.0-36.3) seconds Sodium (133-145) mmol/L Potassium (3.5-5.0) mmol/L Chloride (101-111) mmol/L Carbon Dioxide (22-32) mmol/L Anion Gap (2-11) mmol/L BUN (6-24) mg/dL Creatinine (0.67-1.17) mg/dL Est GFR ( Amer) (>60) Est GFR (Non-Af Amer) (>60) BUN/Creatinine Ratio (8-20) Glucose (70-100) mg/dL Calcium (8.6-10.3) mg/dL Total Bilirubin (0.2-1.0) mg/dL AST (13-39) U/L ALT (7-52) U/L Alkaline Phosphatase (34-104) U/L Total Protein (6.4-8.9) g/dL Albumin (3.2-5.2) g/dL Globulin (2-4) g/dL Albumin/Globulin Ratio (1-3) Blood Type A Negative Antibody Screen Pending Crossmatch See Detail Microbiology and Other Data: Microbiology 08/04/17 06:30 Nasal Screen MRSA (PCR)(KD) - Final Nasal Mrsa Negative 08/03/17 16:55 Nasal Screen MRSA (PCR)(DK) - Final Nasal Mrsa Negative Assess/Plan/Problems-Billing Mr Osman is an 81 yo M who has a h/o CAD, afib on pradaxa, diastolic CHF, dementia, seizure disorder and bullous pemphigoid on chronic steroids who presented to the ER with c/o BRBPR. - Patient Problems (1) Bright red blood per rectum Current Visit: Yes Status: Acute Code(s): K62.5 - HEMORRHAGE OF ANUS AND RECTUM SNOMED Code(s): 494834970 Comment: No further episodes. H/H has dropped some today but I question if his H/H dropped because he was volume concentrated and now that his diuretic has been held his volume has expanded his H/H may have gone down. Will follow up tomorrow AM. (2) FORTUNATO (acute kidney injury) Current Visit: Yes Status: Acute Code(s): N17.9 - ACUTE KIDNEY FAILURE, UNSPECIFIED SNOMED Code(s): 69833493 Comment: Creatinine has finally started to come down. Continue to hold torsemide. Recheck labs tomorrow. He will need to go back on torsemide at some point but perphaps a lower dose with closer lab monitoring. (3) Bullous pemphigoid Current Visit: Yes Status: Acute Code(s): L12.0 - BULLOUS PEMPHIGOID SNOMED Code(s): 58395506 Comment: Continue prednisone 5mg daily. (4) Dementia Current Visit: Yes Status: Acute Code(s): F03.90 - UNSPECIFIED DEMENTIA WITHOUT BEHAVIORAL DISTURBANCE SNOMED Code(s): 53746642 Comment: Reorient as needed. (5) Diastolic CHF Current Visit: Yes Status: Acute Code(s): I50.30 - UNSPECIFIED DIASTOLIC ( CONGESTIVE) HEART FAILURE SNOMED Code(s): 640024666 Comment: No signs of fluid overload at this time. Will continue to hold torsemide for now. (6) DVT prophylaxis Current Visit: Yes Status: Chronic Code(s): HRV6220 - SNOMED Code(s): 928668281 Comment: SCDs only secondary to BRBPR (7) DNR (do not resuscitate) Current Visit: Yes Status: Acute
[2017-08-05 13:26] LABS: Monocytes % 6 % (0-13)
[2017-08-05 13:27] LABS: ABS Neutrophils 68.5 10^3/ul (1.5-7.7)
[2017-08-05 13:28] LABS: ABS Basophils 0.9 10^3/ul (0-0.2); ABS Eosinophils 3.4 10^3/ul (0-0.6); ABS Lymphocytes 21.2 10^3/ul (1.0-4.8); ABS Nucleated RBC 0 10^3/ul
[2017-08-05] MEDS: cefTRIAXone VIAL(*) 1,000 MG in D5W 50 ML BAG* 50 ML IVPB SCH (21:50)
[2017-08-05] MEDS: Latanoprost 0.005%* 2.5 ml BTL BOTH EYES SCH (21:56)
[2017-08-06] MEDS: Linezolid 600 MG IVPREMIX(*) 600 MG/300 ML BAG IVPB SCH ×2 (00:04→10:54)
[2017-08-06] MEDS: NS 0.9% 1000 ML* 1,000 ML IV SCH (05:23)
[2017-08-06 06:26] LABS: Hematocrit 34 % (42-52); Hemoglobin 11.9 g/dl (14.0-18.0); Mean Corpuscular HGB Conc 35 g/dl (31-36); Mean Corpuscular Hemoglobin 33 pg (27-31); Mean Corpuscular Volume 95 fL (80-94); Mean Platelet Volume 9 um3 (7.4-10.4); Platelet Count 187 10^3/ul (150-450); Red Blood Count 3.59 10^6/ul (4.0-5.4); Red Cell Distribution Width 16 % (10.5-15); White Blood Count 9.4 10^3/ul (3.5-10.8)
[2017-08-06 06:36] LABS: EGFR Non-African American 53.3 (>60)
[2017-08-06] MEDS: Brinzolamid/Brimonidin OPH(NF) 1 DROP BTL BOTH EYES SCH ×2 (07:36→12:41)
[2017-08-06] MEDS: Phenytoin CAP(*) 100 MG CAP.ER PO SCH (08:21)
[2017-08-06] MEDS: Zinc Oxide 16% PASTE* (Butt Paste) 1 TUBE TOPICAL SCH ×2 (08:21→13:01)
[2017-08-06] MEDS: predniSONE TAB* 5 MG PO SCH (08:21)
[2017-08-06] MEDS ORDERED: Potassium Chlor TAB* 20 MEQ TAB.ER PO ONE (14:24)
--- NOTE | 2017-08-06 14:48 | PN ---
Subjective Date of Service: 08/06/17 Interval History: Pt is feeling ok. he denies any pain or nausea. He has no complaints at this time. Objective Active Medications: Brinzolamide/Brimonidine Tartrate (Simbrinza Oph.Susp(Nf)) [address] [facility] Last Admin: 08/06/17 12:41 Dose: Not Given Ceftriaxone Sodium 1,000 mg/ (Dextrose) 50 mls @ 200 mls/hr IVPB Q24H [facility] Last Admin: 08/05/17 21:50 Dose: 200 mls/hr Linezolid (Zyvox 600 Mg Ivpremix(*)) 600 mg in 300 mls @ 200 mls/hr IVPB Q12H [facility] Last Admin: 08/06/17 10:54 Dose: Not Given Sodium Chloride (Ns 0.9% 1000 Ml*) 1,000 mls @ 100 mls/hr IV PER RATE [facility] Last Admin: 08/06/17 05:23 Dose: 100 mls/hr Latanoprost (Xalatan 0.005%*) [address] [facility] Last Admin: 08/05/17 21:56 Dose: 1 drop Ondansetron HCl (Zofran Inj*) 4 mg IV Q6H PRN PRN Reason: NAUSEA Last Admin: 08/05/17 13:35 Dose: 4 mg Phenytoin Sodium (Dilantin Cap(*)) [address] [facility] Last Admin: 08/06/17 08:21 Dose: 300 mg Prednisone (Deltasone Tab*) [address] [facility] Last Admin: 08/06/17 08:21 Dose: 5 mg Zinc Oxide (Jackson's Butt Paste) [address] [facility] Last Admin: 08/06/17 13:01 Dose: 1 applic Vital Signs - 8 hr 08/06/17 08/06/17 08/06/17 07:36 07:49 08:00 Temperature 97.7 F 97.7 F Pulse Rate 54 66 Respiratory 16 18 Rate Blood Pressure 110/53 110/53 (mmHg) O2 Sat by Pulse 95 95 Oximetry Oxygen Devices in Use Now: None Appearance: Elderly male lying in bed, NAD Eyes: No Scleral Icterus Ears/Nose/Mouth/Throat: Mucous Membranes Moist Respiratory: Symmetrical Chest Expansion and Respiratory Effort, Clear to Auscultation Cardiovascular: NL Sounds; No Murmurs; No JVD, RRR, - - trace-1+ pitting edema Abdominal: NL Sounds; No Tenderness; No Distention Extremities: No Clubbing, Cyanosis Skin: No Rash or Ulcers, No Nodules or Sclerosis Neurological: - - pleasantly confused Result Diagrams: 08/06/17 05:51 08/06/17 05:51 Additional Lab and Data: Lab Results 08/03/17 08/03/17 08/03/17 Range/Units 06:31 06:31 06:31 WBC 18.2 H (3.5-10.8) 10^3/ul RBC 5.19 (4.0-5.4) 10^6/ul Hgb 16.8 (14.0-18.0) g/dl Hct 49 (42-52) % MCV 95 H (80-94) fL MCH 32 H (27-31) pg MCHC 34 (31-36) g/dl RDW 16 H (10.5-15) % Plt Count 289 (150-450) 10^3/ul MPV 9 (7.4-10.4) um3 Neut % (Auto) 78.5 (38-83) % Lymph % (Auto) 15.3 L (25-47) % Monona % (Auto) 4.9 (1-9) % Eos % (Auto) 0.1 (0-6) % Baso % (Auto) 1.2 (0-2) % Absolute Neuts (auto) 14.3 H (1.5-7.7) 10^3/ul Absolute Lymphs (auto) 2.8 (1.0-4.8) 10^3/ul Absolute Monos (auto) 0.9 H (0-0.8) 10^3/ul Absolute Eos (auto) 0 (0-0.6) 10^3/ul Absolute Basos (auto) 0.2 (0-0.2) 10^3/ul Absolute Nucleated RBC 0 10^3/ul Nucleated RBC % 0 INR (Anticoag Therapy) 1.18 H (0.77-1.02) APTT 39.4 H (26.0-36.3) seconds Sodium 136 (133-145) mmol/L Potassium 4.0 (3.5-5.0) mmol/L Chloride 90 L (101-111) mmol/L Carbon Dioxide 28 (22-32) mmol/L Anion Gap 18 H (2-11) mmol/L BUN 63 H (6-24) mg/dL Creatinine 2.49 H (0.67-1.17) mg/dL Est GFR ( Amer) 32.1 (>60) Est GFR (Non-Af Amer) 25.0 (>60) BUN/Creatinine Ratio 25.3 H (8-20) Glucose 172 H (70-100) mg/dL Calcium 10.4 H (8.6-10.3) mg/dL Total Bilirubin 0.50 (0.2-1.0) mg/dL AST 20 (13-39) U/L ALT 19 (7-52) U/L Alkaline Phosphatase 112 H (34-104) U/L Total Protein 7.4 (6.4-8.9) g/dL Albumin 3.6 (3.2-5.2) g/dL Globulin 3.8 (2-4) g/dL Albumin/Globulin Ratio 0.9 L (1-3) Blood Type Antibody Screen Crossmatch 08/03/17 Range/Units 06:31 WBC (3.5-10.8) 10^3/ul RBC (4.0-5.4) 10^6/ul Hgb (14.0-18.0) g/dl Hct (42-52) % MCV (80-94) fL MCH (27-31) pg MCHC (31-36) g/dl RDW (10.5-15) % Plt Count (150-450) 10^3/ul MPV (7.4-10.4) um3 Neut % (Auto) (38-83) % Lymph % (Auto) (25-47) % Monona % (Auto) (1-9) % Eos % (Auto) (0-6) % Baso % (Auto) (0-2) % Absolute Neuts (auto) (1.5-7.7) 10^3/ul Absolute Lymphs (auto) (1.0-4.8) 10^3/ul Absolute Monos (auto) (0-0.8) 10^3/ul Absolute Eos (auto) (0-0.6) 10^3/ul Absolute Basos (auto) (0-0.2) 10^3/ul Absolute Nucleated RBC 10^3/ul Nucleated RBC % INR (Anticoag Therapy) (0.77-1.02) APTT (26.0-36.3) seconds Sodium (133-145) mmol/L Potassium (3.5-5.0) mmol/L Chloride (101-111) mmol/L Carbon Dioxide (22-32) mmol/L Anion Gap (2-11) mmol/L BUN (6-24) mg/dL Creatinine (0.67-1.17) mg/dL Est GFR ( Amer) (>60) Est GFR (Non-Af Amer) (>60) BUN/Creatinine Ratio (8-20) Glucose (70-100) mg/dL Calcium (8.6-10.3) mg/dL Total Bilirubin (0.2-1.0) mg/dL AST (13-39) U/L ALT (7-52) U/L Alkaline Phosphatase (34-104) U/L Total Protein (6.4-8.9) g/dL Albumin (3.2-5.2) g/dL Globulin (2-4) g/dL Albumin/Globulin Ratio (1-3) Blood Type A Negative Antibody Screen Pending Crossmatch See Detail Microbiology and Other Data: Microbiology 08/04/17 06:30 Nasal Screen MRSA (PCR)(DK) - Final Nasal Mrsa Negative 08/03/17 16:55 Nasal Screen MRSA (PCR)(DK) - Final Nasal Mrsa Negative Assess/Plan/Problems-Billing Mr Osman is an 81 yo M who has a h/o CAD, afib on pradaxa, diastolic CHF, dementia, seizure disorder and bullous pemphigoid on chronic steroids who presented to the ER with c/o BRBPR. - Patient Problems (1) Bright red blood per rectum Current Visit: Yes Status: Acute Code(s): K62.5 - HEMORRHAGE OF ANUS AND RECTUM SNOMED Code(s): 772346225 Comment: H/H is down little further but I suspect it is secondary to IVF hydration. Will get follow up H/H 08/10/17. Hold pradaxa until the day of repeat CBC. (2) FORTUNATO (acute kidney injury) Current Visit: Yes Status: Acute Code(s): N17.9 - ACUTE KIDNEY FAILURE, UNSPECIFIED SNOMED Code(s): 82445282 Comment: Creatinine is improved. Hold HCTZ indifintely but resume torsemide at 40mg daily. Follow up BMP 08/10/17. (3) Bullous pemphigoid Current Visit: Yes Status: Acute Code(s): L12.0 - BULLOUS PEMPHIGOID SNOMED Code(s): 66172704 Comment: Continue prednisone 5mg daily. (4) Dementia Current Visit: Yes Status: Acute Code(s): F03.90 - UNSPECIFIED DEMENTIA WITHOUT BEHAVIORAL DISTURBANCE SNOMED Code(s): 10649011 Comment: Reorient as needed. (5) Diastolic CHF Current Visit: Yes Status: Acute Code(s): I50.30 - UNSPECIFIED DIASTOLIC ( CONGESTIVE) HEART FAILURE SNOMED Code(s): 417135536 Comment: No signs of fluid overload at this time. Resume torsemide but at reduced dose of 40mg. (6) DVT prophylaxis Current Visit: Yes Status: Chronic Code(s): TKF7159 - SNOMED Code(s): 785355800 Comment: SCDs only secondary to BRBPR (7) DNR (do not resuscitate) Current Visit: Yes Status: Acute Status and Disposition: d/c to [facility]
--- NOTE | 2017-08-06 15:33 | DS ---
[facility] DATE OF AD[facility]ION: 08/03/2017. DATE OF DISCHARGE: 08/06/2017. PRIMARY CARE PHYSICIAN: Dr. Springer. PRINCIPAL DIAGNOSES: 1. Acute renal failure. 2. Hemorrhoidal versus diverticular bleeding with mild reduction in H and H. SECONDARY DIAGNOSES: 1. Hyperlipidemia. 2. Coronary artery disease. 3. Atrial fibrillation. 4. Diastolic heart failure. 5. Dementia. 6. Seizure disorder. 7. History of prostate cancer. 8. Suprapubic catheter. 9. Bullous pemphigoid, on chronic steroids. DISCHARGE MEDICATIONS: 1. Zinc oxide 16% applied topically t.i.d. 2. Minerin Cream applied topically at bedtime. 3. [place] 5/325 one tab p.o. q.6 hours prn pain. 4. Pradaxa 150 mg p.o. b.i.d. to resume on 08/10/2017. 5. Simbrinza one drop to both eyes t.i.d. 6. Phenytoin 300 mg p.o. b.i.d. 7. Calcium plus D one tab p.o. b.i.d. 8. Metformin 500 mg p.o. b.i.d. 9. Vitamin D3 50,000 units p.o. monthly. 10. Travatan Z one drop to both eyes at bedtime. 11. Torsemide 40 mg p.o. daily (reduced dose). 12. Prednisone 5 mg p.o. daily. 13. Spironolactone 25 mg p.o. daily. 14. Senokot S one tab p.o. daily. 15. Calcium Chloride 10 mEq p.o. daily. 16. Vantin 200 mg p.o. twice daily times 8 doses. Discontinued medications: 1. Metoprolol. 2. Hydrochlorothiazide. HOSPITAL COURSE: Mr. Osman is an 81-year-old male who presented to the emergency room on 08/03/2017 with complaints of bright red blood per rectum. The patient had been hospitalized 07/15/2017 through 07/17/2017 with bright red blood per rectum and a proteus mirabilis UTI. The patient had a bloody bowel movement on the head waiter/waitress of admission. The patient was admitted for monitoring of his H and H, especially given that he has been on Pradaxa for his atrial fibrillation. The patient had one to two bright red bloody bowel movements after being admitted; however, this has since resolved. The patient was seen in consultation by Dr. Sow who did not feel that colonoscopy or flexible sigmoidoscopy was warranted at this time. The patient initially had no drop in his H and H; however, after IV hydration was started due to his acute renal failure, his H and H did trend down. His hemoglobin was 11.9 on the day of discharge with a hematocrit of 34. The patient will need a follow-up CBC on 08/10/2017 to ensure this is stable. I am asking that the patient stay off his Pradaxa until 08/10/2017. Of note, if the patient's creatinine is worsened on lab work this coming Thursday, perhaps the patient's Pradaxa dose should be reduced due to his poor renal function. During the course of the hospitalization, it was noted that the patient's creatinine was markedly elevated compared to his baseline. The patient has a baseline creatinine in the 1.2 to 1.5 range. His creatinine was 2.49 on presentation. I suspect this was likely secondary to volume depletion. The patient was on Hydrochlorothiazide and 80 mg of Torsemide daily prior to his hospitalization. The Torsemide has been now reduced to 40 mg daily and the Hydrochlorothiazide has been discontinued. The patient will get a follow-up BMP on 08/10/2017 to ensure that his renal function is stable. The patient did receive IV fluid hydration during the course of his hospitalization to improve his kidney function. In terms of the patient's chronic medical conditions, his Metoprolol has been discontinued as his blood pressure is under good control without this medication. Additionally, his Hydrochlorothiazide has been discontinued as above. The patient is on Metformin for his type 2 diabetes and while this can be continued, if the patient's creatinine is greater than 1.4 to 1.5 on repeat blood work, this medication will need to be discontinued as it puts him at risk for lactic acidosis. At this point, the patient feels stable for discharge back to [facility]. FOLLOW-UP CONCERNS: The patient is being discharged to [facility] today, 02/2017. ACTIVITY LEVEL: As tolerated. DIET: Diabetic. CONDITION ON DISCHARGE: Stable. Thirty-five minutes were spent discharging this patient. [id number]/[facility] #: [id number] CARISSA
[2017-08-06 15:46] VITALS: BP 149/80
== END 2017-08-06 16:40 | DRG 378 ==
LOC: ED 06:05 → MED 08:46
PROVIDERS: ADMIT Internal Medicine; ATTEND Hospitalist
DX: K62.5 Hemorrhage of anus and rectum (principal); N17.9 Acute kidney failure, unspecified; I48.2 Chronic atrial fibrillation; E66.01 Morbid (severe) obesity due to excess calories; L12.0 Bullous pemphigoid; N39.0 Urinary tract infection, site not specified; E11.9 Type 2 diabetes mellitus without complications; I50.32 Chronic diastolic (congestive) heart failure; I11.0 Hypertensive heart disease with heart failure; E86.9 Volume depletion, unspecified; E78.00 Pure hypercholesterolemia, unspecified; B96.4 Proteus (mirabilis) (morganii) as the cause of diseases classified elsewhere; F03.90 Unspecified dementia, unspecified severity, without behavioral disturbance, psychotic disturbance, mood disturbance, and anxiety; G40.909 Epilepsy, unspecified, not intractable, without status epilepticus; Z66 Do not resuscitate; F32.9 Major depressive disorder, single episode, unspecified; K64.9 Unspecified hemorrhoids; K57.90 Diverticulosis of intestine, part unspecified, without perforation or abscess without bleeding; F41.0 Panic disorder [episodic paroxysmal anxiety]; I25.10 Atherosclerotic heart disease of native coronary artery without angina pectoris; H40.9 Unspecified glaucoma; Z95.5 Presence of coronary angioplasty implant and graft; Z98.42 Cataract extraction status, left eye; Z98.41 Cataract extraction status, right eye; Z88.0 Allergy status to penicillin; Z86.718 Personal history of other venous thrombosis and embolism; Z86.14 Personal history of Methicillin resistant Staphylococcus aureus infection; Z81.8 Family history of other mental and behavioral disorders; Z85.46 Personal history of malignant neoplasm of prostate; Z95.0 Presence of cardiac pacemaker; Z90.49 Acquired absence of other specified parts of digestive tract; Z87.440 Personal history of urinary (tract) infections; Z79.84 Long term (current) use of oral hypoglycemic drugs; Z79.52 Long term (current) use of systemic steroids; Z68.31 Body mass index [BMI] 31.0-31.9, adult
CPT/HCPCS: 36415; 71010; 80048; 80053; 81003; 81015; 82270; 82570; 84300; 84540; 85025; 85027; 85060; 85610; 85730; 86850; 86870; 86880; 86900; 86901; 86922; 87077; 87086; 87186; 87641; 99285; A9270-GY; J0696; J2020; J2405; J3480; J7512

== ENCOUNTER 2017-10-06 14:32 | Emergency (ER) | payer MEDICARE, MEDICAID ==
--- NOTE | 2017-10-06 15:35 | RAD ---
Indication: Abdominal pain. Comparison: October 14, 2015 CT. Technique: Supine and LEFT lateral decubitus abdomen views. Report: Large body habitus limits image quality. RIGHT upper quadrant surgical clips. Negative for dilated bowel loops or significant air-fluid levels. Moderate rectal distention with stool. No evidence for free air. Dependent atelectasis at the LEFT lung noted on the LEFT lateral decubitus view. Costochondral calcifications noted. No suspicious calcifications. Negative for mass effect. IMPRESSION: Moderate rectal distention with stool. No evidence for bowel obstruction.
[2017-10-06 15:38] LABS: ABS Basophils 0.1 10^3/ul (0-0.2); ABS Eosinophils 0.3 10^3/ul (0-0.6); ABS Lymphocytes 1.9 10^3/ul (1.0-4.8); ABS Monocytes 0.5 10^3/ul (0-0.8); ABS Neutrophils 9.8 10^3/ul (1.5-7.7); ABS Nucleated RBC 0 10^3/ul; Eosinophil % 2.4 % (0-6); Hematocrit 42 % (42-52); Hemoglobin 14.2 g/dl (14.0-18.0); Lymphocyte % 14.8 % (25-47); Mean Corpuscular HGB Conc 34 g/dl (31-36); Mean Corpuscular Hemoglobin 33 pg (27-31); Mean Corpuscular Volume 96 fL (80-94); Mean Platelet Volume 8 um3 (7.4-10.4); Nucleated Red Blood Cells % 0; Platelet Count 261 10^3/ul (150-450); Red Blood Count 4.37 10^6/ul (4.0-5.4); Red Cell Distribution Width 15 % (10.5-15); White Blood Count 12.7 10^3/ul (3.5-10.8)
[2017-10-06] MEDS ORDERED: Bisacodyl SUPP* 10 MG SUPP PR ONE (15:40)
[2017-10-06 15:54] LABS: EGFR Non-African American 71.4 (>60)
[2017-10-06 16:50] VITALS: BP 0/0
[2017-10-06 17:35] LABS: Urine Appearance Cloudy; Urine Blood 1+ (Negative); Urine Color Yellow; Urine Ketones Negative (Negative); Urine Protein Negative (Negative); Urine Specific Gravity 1.008 (1.010-1.030); Urine Urobilinogen Negative (Negative)
--- NOTE | 2017-10-08 09:58 | PN ---
Progress Note - Progress Note Date of Service: 10/06/17 Note: Urine culture grew Providencia Stuartii 75-100,000 Patient not placed on abx prior to discharge. Will await sensitivities. Nothing further at this time. Ritu Patel PA-C
--- NOTE | 2017-10-10 08:37 | PN ---
Progress Note - Progress Note Date of Service: 10/06/17 Note: Urine culture grew Providencia stuartii and Escherichia coli All oral medications available are resistant to Lane Stuartii According to infectious disease literature, this is part of the human GI tract Ciprofloxacin, while resistant provided the most coverage based on DK Cipro also is covering the co- occurring Escherichia coli
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
== END 2017-10-06 16:48 | disposition home or self-care (01) ==
LOC: ED 14:32
DX: K59.00 Constipation, unspecified (principal); I48.91 Unspecified atrial fibrillation; Z79.01 Long term (current) use of anticoagulants; I25.10 Atherosclerotic heart disease of native coronary artery without angina pectoris; E78.00 Pure hypercholesterolemia, unspecified; Z86.718 Personal history of other venous thrombosis and embolism; I10 Essential (primary) hypertension; E66.01 Morbid (severe) obesity due to excess calories; F03.90 Unspecified dementia, unspecified severity, without behavioral disturbance, psychotic disturbance, mood disturbance, and anxiety; N39.0 Urinary tract infection, site not specified; B96.20 Unspecified Escherichia coli [E. coli] as the cause of diseases classified elsewhere; B96.89 Other specified bacterial agents as the cause of diseases classified elsewhere
CPT/HCPCS: 36415; 74019; 80053; 81003; 81015; 83690; 85025; 87077; 87086; 87186; 99282; A9270-GY

== ENCOUNTER 2017-11-07 18:20 | Emergency (ER) | payer MEDICAID, MEDICARE ==
[2017-11-07 20:49] VITALS: BP 159/83
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
== END 2017-11-07 21:44 | disposition home or self-care (01) ==
LOC: ED 18:20
DX: T83.090A Other mechanical complication of cystostomy catheter, initial encounter (principal); Z88.0 Allergy status to penicillin
CPT/HCPCS: 99282

== ENCOUNTER 2019-10-30 17:24 | Inpatient (IN) | payer MEDICARE, MEDICAID ==
[2019-10-30] MEDS ORDERED: LORazepam INJ* 2 MG/ML 1 ML VIAL IV ONE (17:28)
[2019-10-30] MEDS ORDERED: NS 0.9% 1000 ML** 1,000 ML IV ONE (17:28)
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
[2019-10-30 17:56] LABS: ABS Basophils 0.1 10^3/ul (0-0.2); ABS Lymphocytes 1.6 10^3/ul (1.0-4.8); ABS Monocytes 0.9 10^3/ul (0-0.8); Hematocrit 50 % (42-52); Hemoglobin 16.4 g/dL (14.0-18.0); Lymphocyte % 8.3 %; Mean Corpuscular HGB Conc 33 g/dL (31-36); Mean Corpuscular Hemoglobin 30 pg (27-31); Mean Corpuscular Volume 92 fL (80-94); Mean Platelet Volume 8.7 fL (7.4-10.4); Platelet Count 306 10^3/uL (150-450); Red Blood Count 5.42 10^6 /uL (4.18-5.48); Red Cell Distribution Width 14 % (10-15); White Blood Count 19.6 10^3/uL (3.5-10.8)
[2019-10-30 18:03] LABS: Activated Partial Thrombo Time 28.1 seconds (26.0-38.0); INR 1.2 (0.82-1.09)
[2019-10-30 18:12] LABS: ALT 94 U/L (7-52); AST 55 U/L (13-39); Albumin 3.9 g/dL (3.2-5.2); Alkaline Phosphatase 115 U/L (34-104); Anion Gap 10 mmol/L (2-11); BUN/Creatinine Ratio 30.7 (8-20); Blood Urea Nitrogen 35 mg/dL (6-24); CO2 Carbon Dioxide 33 mmol/L (22-32); Calcium 9.6 mg/dL (8.6-10.3); Chloride 100 mmol/L (101-111); EGFR African American 73.9 (>60); EGFR Non-African American 61.1 (>60); Glucose 199 mg/dL (70-100); Magnesium 2.2 mg/dL (1.9-2.7); Potassium 4.2 mmol/L (3.5-5.0); Sodium 143 mmol/L (135-145); Total Protein 7.9 g/dL (6.4-8.9)
[2019-10-30] MEDS ORDERED: cefTRIAXone(*) 1 GM in NS 0.9% 50 ML* 50 ML IVPB ONE (18:30)
[2019-10-30 18:43] LABS: Urine Appearance Cloudy; Urine Bilirubin Negative (Negative); Urine Blood Negative (Negative); Urine Color Amber; Urine Glucose Negative (Negative); Urine Ketones Trace (Negative); Urine Nitrite Negative (Negative); Urine Protein 2+(100 mg/dL) (Negative); Urine Specific Gravity 1.013 (1.010-1.030); Urine Urobilinogen Positive (Negative)
[2019-10-30 18:45] LABS: Urine Bacteria 1+ (Absent); Urine Red Blood Cell Absent (Absent); Urine Squamous Epithelial Cell Present (Absent); Urine White Blood Cell 3+(>20/hpf) (Absent)
[2019-10-30 18:47] LABS: Alcohol < 10 mg/dL (<10); Phenytoin < 2.5 mcg/mL (10-20)
[2019-10-30 18:54] LABS: C Reactive Protein 53.68 mg/L (<8.01)
[2019-10-30 18:59] LABS: TSH (Thyroid Stimulating Horm) 1.25 mcIU/mL (0.34-5.60)
[2019-10-30] MEDS ORDERED: Phenytoin IV(*) 1,000 MG in NS 0.9% 250 ML* 180 ML IV ONE (19:05)
[2019-10-30] MEDS ORDERED: NS 0.9% IV ONE (19:10)
[2019-10-30] MEDS ORDERED: PHENYTOIN IV ONE ×3 (19:10→20:00)
[2019-10-30] MEDS ORDERED: [UNRECOGNIZED DRUG - OTHER] IV ONE ×2 (20:00)
[2019-10-30] MEDS ORDERED: Latanoprost 0.005%* 2.5 ml BTL BOTH EYES SCH (21:00)
[2019-10-30] MEDS ORDERED: Brinzolamid/Brimonidin OPH(NF) 1 DROP BTL BOTH EYES SCH (21:00)
[2019-10-30] MEDS ORDERED: DOXYcycline IV* 100 MG in NS 0.9% 250 ML* 250 ML IVPB SCH (21:30)
[2019-10-30] MEDS ORDERED: LORazepam INJ* 2 MG/ML 1 ML VIAL IV PUSH PRN (21:32)
[2019-10-30] MEDS ORDERED: Lorazepam PYXIS KEY PRN (21:32)
[2019-10-30] MEDS ORDERED: Succinylcholine* 20 MG/ML 10 ML VIAL ONE ×2 (21:48→21:52)
[2019-10-30] MEDS ORDERED: Etomidate* 2 MG/ML 20 ML VIAL (40 MG) ONE (21:52)
[2019-10-30] MEDS ORDERED: Propofol* 100 ML ONE (21:55)
--- NOTE | 2019-10-30 21:57 | ED ---
ED Procedures - Intubation Time of Intubation: 21:55 Intubation Method: orotracheal Tube Size (cm): 7.5 Medications: Succinylcholine Breath Sounds after Intubation: equal Intubation Complications: no complications Post Intubation Xray: Yes - Will be followed by Dr. Tompkins. Patient will back tp Dr. Tompkins servoces.
[2019-10-30] MEDS ORDERED: Propofol* 100 ML IV SCH (22:00)
[2019-10-30] MEDS ORDERED: Hydrocortisone INJ* 100 MG/2 ML VIAL (in pyxis) IV SCH (22:00)
--- NOTE | 2019-10-30 22:08 | CONS ---
CC: [facility]; Dr. Loja * CONSULTATION REPORT: DATE OF CONSULT: 10/30/19 TIME OF CONSULTATION: 8 o'clock p.m. PRIMARY CARE PHYSICIAN: [facility] NEUROLOGIST: Dr. Loja. CHIEF COMPLAINT: Seizures. HISTORY OF PRESENT ILLNESS: This is an 84-year-old man with history of seizure disorder, who presents to the emergency department from [facility] after a witnessed seizure. [facility] does not include report or description of the seizure; however, did report that he had been refusing to take his medications. Mr. Osman is unable to give a history at this time, so his and daughter provide the history. His daughter says that [facility] called her about a [id number]-half ago that he had been refusing to take his medications, and his and daughter say that he has not had a seizure for 17 years. 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 They last saw him on his [birth year] and at that time thought he was doing at his baseline, which is consistent with dementia that waxes and wanes, but he was having a good day that day and they had no concerns at that time. He was then witnessed to have another tonic-clonic seizure in the ambulance and then another one in the emergency department, which was reported to last approximately 2 minutes. He received 2 mg of lorazepam at that time and has been drowsy since then. PAST MEDICAL HISTORY: Seizure disorder, coronary artery disease, hyperlipidemia ; atrial fibrillation, on anticoagulation; heart failure with preserved ejection fraction, dementia, history of prostate cancer, suprapubic catheter; bullous pemphigoid, on steroids; type 2 diabetes, wheelchair bound and requiring a Brynn lift for transfers. HOME MEDICATIONS: From [facility]: 1. Tylenol 650 q.12 p.r.n. 2. Milk of magnesia 30 mL daily p.r.n. 3. Eliquis 2.5 b.i.d. 4. Lantus 8 units daily. 5. Calcium/vitamin D 500/2000 daily. 6. Phenytoin 300 mg twice a day? However, the dosing instruction is cut off in this report. 7. Simbrinza suspension 1 drop in both eyes 3 times a day. ALLERGIES: PENICILLIN. FAMILY HISTORY: Unknown and unable to be obtained due to the patient's mental status. SOCIAL HISTORY: He lives at [facility] and has lived there for approximately 5 years. He is wheelchair bound. His healthcare proxy is his , Dilcia Osman. He is a former smoker. REVIEW OF SYSTEMS: Unable to be obtained due to the patient's mental status. PHYSICAL EXAMINATION: Temperature 98.7, heart rate 96, respiratory rate 17, pulse ox 96% on high flow nasal cannula at 40 L per minute and 100% FiO2, blood pressure 145/97. General: Drowsy elderly man, who is resting in the bed and does not respond to voice, but does respond to yelling his name and moans. He pushes us away during sternal rub and withdraws to pain. HEENT: Pupils are 3 to 4 mm bilaterally and reactive to light. He does not track me in the room. His oral mucosa is moist. Neck: No JVD or adenopathy is noted. Chest: He is in a regular rate and rhythm with no murmurs. His lungs are anteriorly. His abdomen is obese, soft. There is a large healed incision over the right upper quadrant. A palpable mass on the right upper quadrant. His extremities have chronic venous stasis changes with a wound wrapped on the left mendoza. His DP and PT pulses are 2+ bilaterally. Neurologic: He is not responsive to voice, but is responsive to yelling and sternal rub. He withdraws, he moans, he pushes us away. He does not follow commands. He moves all extremities spontaneously. He has no rigidity. No tremor. No myoclonus. No asterixis. DIAGNOSTIC STUDIES/LAB DATA: White blood cells 19.6, hemoglobin 16.4, platelets 306. INR 1.2. Blood gas 7.38, 63, 52. Sodium 143, potassium 4.2, chloride 100, bicarb 33, BUN 35, creatinine 1.14, glucose 199, lactic acid 5.4, CRP 53.6, AST 55, ALT 95, alk phos 115. Urine is significant for urobilinogen, 3+ leuk esterase, 3+ white blood cells, 1+ bacteria, and tox is significant for phenytoin less than 2.5. Brain CT shows no acute intracranial findings given the study limitations, stable focus of left frontal encephalomalacia, chronic white matter ischemic change and age appropriate cortical volume loss and stable bilateral surgical changes. Chest x-ray showed persistent right hemidiaphragm elevation similar to the July 2017 chest x-ray and mildly increased density of the parenchyma of the right lung could be due to the relatively decreased inspiration compared to left. Alternatively, this appearance could be due to pulmonary edema or mild pneumonia. EKG: Sinus tachycardia, normal axis, normal intervals, Q in lead III. No other ST or T-wave changes. ASSESSMENT AND PLAN: This is an 84-year-old man with history of seizure disorder, who has been refusing to take his medications, who presents to the emergency department with a seizure at [facility], followed by a seizure in the ambulance and a seizure in the emergency department. 1. Seizure. History of seizure disorder and medication nonadherence in combination with a possible infection lowering the seizure threshold. He received abortive medication in the emergency department and Dr. Angulo was consulted, who recommended an IV phenytoin load, which he is receiving at this time. His mental status has improved over the last 15 minutes since I have seen him, he is becoming more alert. We will continue to monitor him closely with neuro checks, seizure precautions, and admit him to the ICU for close monitoring. Neurology will be evaluating him in the morning and we appreciate further recommendations from them. 2. Acute hypoxic respiratory failure. I suspect this was related to his postictal state plus sedation of Ativan plus a possible developing pneumonia on his chest x- ray. He is currently stable on Vapotherm. We will keep him on Vapotherm and admit him to the ICU with attempts to wean his oxygen as able and hopefully as if mental status improves, this will be possible and also treating his pneumonia with ceftriaxone and azithromycin and checking urine antigens. Aspiration should also be on the differential for his pneumonia. 3. Dementia. He is not on any medication for this and according to his family , has been at baseline recently. 4. Atrial fibrillation. He is currently in normal sinus rhythm, continue Eliquis. 5. Heart failure with preserved ejection fraction. He appears euvolemic, continue torsemide and spironolactone. 6. Immunocompromised state. He should be considered immunocompromised since he is on chronic prednisone. 7. DVT prophylaxis. Contraindicated in setting of Eliquis use. 8. Code status. He is full code. 9. Disposition: Admit to the ICU for Vapotherm and close neuro checks with seizure precautions and a Neurology consult. 10. Diet: NPO. [id number]/[facility] #: [id number] MTDD
--- NOTE | 2019-10-30 22:15 | PN ---
Hospitalist Progress Note Date of Service: 10/30/19 I saw Mr. Osman when he arrived to ICU. He had a brief episode of apnea and did not respond to our commands or alert to voice. He did move both arms when we used a sternal rub. I called Dr. Laura to intubate for airway protection. He came to the bedside to perform intubation. Propofol initiated. I have a call out to the transfer center and am awaiting a call back about ICU bed availability at [facility]. I have discussed with Dr. Humphreys and have a call out to Dr. Angulo as well.
--- NOTE | 2019-10-30 22:22 | PN ---
Hospitalist Progress Note Date of Service: 10/30/19 I called Evelio's Dilcia to update her on intubation status. She is in agreement.
[2019-10-30 22:24] LABS: Albumin 1.5 g/dL (3.2-5.2); Albumin/Globulin Ratio 0.9 (1-3); BUN/Creatinine Ratio 48.9 (8-20); EGFR African American 215.9 (>60); EGFR Non-African American 178.5 (>60); Globulin 1.7 g/dL (2-4); Total Bilirubin 0.2 mg/dL (0.2-1.0); Total Protein 3.2 g/dL (6.4-8.9)
--- NOTE | 2019-10-30 22:39 | PN ---
Hospitalist Progress Note Date of Service: 10/30/19 I've attempted to reach our composition floor setter neurologist twice with no call back. I have arranged for transfer to [facility]. Accepting physician is Dr. Morales.
[2019-10-30 22:40] LABS: Calcium 4.1 mg/dL (8.6-10.3); Potassium 2.5 mmol/L (3.5-5.0)
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
[2019-10-30 23:58] LABS: Albumin 3.5 g/dL (3.2-5.2); BUN/Creatinine Ratio 32.4 (8-20); Calcium 8.9 mg/dL (8.6-10.3); EGFR African American 81.2 (>60); EGFR Non-African American 67.1 (>60); Globulin 3.5 g/dL (2-4); Magnesium 2.1 mg/dL (1.9-2.7); Total Bilirubin 0.6 mg/dL (0.2-1.0)
[2019-10-31 00:04] VITALS: BP 120/80
[2019-10-31 00:29] LABS: Potassium 4.3 mmol/L (3.5-5.0)
[2019-10-31] MEDS ORDERED: Apixaban* 5 MG TAB PO SCH (08:00)
[2019-10-31] MEDS ORDERED: Spironolactone TAB* 25 MG PO SCH (09:00)
[2019-10-31] MEDS ORDERED: Torsemide TAB* 20 MG PO SCH (09:00)
== END 2019-10-31 00:50 | disposition short-term general hospital (02) | DRG 100 ==
LOC: ED 17:24 → ICU 20:28
PROVIDERS: ADMIT Internal Medicine; ATTEND Internal Medicine
PROC: 0BH17EZ Insertion of Endotracheal Airway into Trachea, Via Natural or Artificial Opening (ICD-10-PCS; principal; 2019-10-30)
PROC: 5A1935Z Respiratory Ventilation, Less than 24 Consecutive Hours (ICD-10-PCS; 2019-10-30)
DX: G40.409 Other generalized epilepsy and epileptic syndromes, not intractable, without status epilepticus (principal); J96.01 Acute respiratory failure with hypoxia; T83.511A Infection and inflammatory reaction due to indwelling urethral catheter, initial encounter; L12.0 Bullous pemphigoid; I50.30 Unspecified diastolic (congestive) heart failure; F03.90 Unspecified dementia, unspecified severity, without behavioral disturbance, psychotic disturbance, mood disturbance, and anxiety; I48.91 Unspecified atrial fibrillation; I11.0 Hypertensive heart disease with heart failure; I25.10 Atherosclerotic heart disease of native coronary artery without angina pectoris; E78.5 Hyperlipidemia, unspecified; E11.9 Type 2 diabetes mellitus without complications; Z85.46 Personal history of malignant neoplasm of prostate; Z79.01 Long term (current) use of anticoagulants; Z99.3 Dependence on wheelchair; Z79.4 Long term (current) use of insulin; Z79.899 Other long term (current) drug therapy; Z88.0 Allergy status to penicillin; Z86.718 Personal history of other venous thrombosis and embolism; Z95.5 Presence of coronary angioplasty implant and graft; Z79.52 Long term (current) use of systemic steroids
CPT/HCPCS: 36415; 70450; 71045; 80053; 80185; 80320; 81003; 81015; 82803; 83605; 83735; 84443; 85025; 85610; 85730; 86140; 87040; 87070; 87077; 87086; 87186; 87205; 87641; 93005; 94002; 96365; 96375; 99285; A9270-GY; G0480; J0330; J0696; J1165; J1720; J2704